=== PATIENT | male | born 1950 | race Caucasian/White ===

== ENCOUNTER 2019-01-22 21:08 | Inpatient (IN) | payer MEDICARE ==
[~2019-01-22] VITALS: Ht 170.2 cm; Wt 88.2 kg
--- NOTE | ~2019-01-22 | OP ---
PATIENT NAME: ROSIBEL JONES MEDICAL RECORD: [id number] :50 [facility] ADMISSION DATE:01/25/19 SURGEON: RAO MATUTE MD DATE OF OPERATION: 01/26/2019 SURGEON: Rao Matute MD ELECTRON BEAM WELDING MACHINE OPERATOR: Harmeet Santana. OPERATION PERFORMED: Right carotid endarterectomy. PREOPERATIVE DIAGNOSES: Right carotid stenosis, coronary artery disease. POSTOPERATIVE DIAGNOSES: Right carotid stenosis, coronary artery disease. ANESTHESIA: General endotracheal anesthesia. ESTIMATED BLOOD LOSS: Minimal. COMPLICATIONS: None. SPECIMENS: Plaque. CONDITION: Stable. DISPOSITION: CV ICU. OPERATIVE FINDINGS: 1. Discrete calcified plaque feathered well distally with primary arterial closure. 2. Neurologically intact to CV ICU. INDICATION: Coronary artery disease and severe carotid stenosis. DESCRIPTION OF PROCEDURE: The patient was brought to the operating suite. General anesthesia was obtained. The patient was prepped and draped. An oblique incision was made in the neck. Subcutaneous tissue divided with electrocautery as well as the muscle layer. The common carotid was dissected out. Facial venous branches were divided between ligatures. The external carotid and thyroid branch were dissected out and encircled with a vessel loop. The internal carotid was dissected out behind the hypoglossal nerve, which was spared from injury and into a relatively normal region of internal carotid and a good size artery that was moderately tortuous. Heparin was given and after the heparin circulated, back bleeding was controlled with a bulldog clamp. Backbleeding on the external carotid and thyroid branch controlled with vessel loops. Inflow controlled with a vascular clamp. EEG and cerebral oximetry were monitored for 2 minutes prior to endarterectomy. The incision was made in the common carotid artery, taken out through the region of dense calcification into a relatively normal region of the internal carotid. The plaque was divided and the common carotid. Eversion endarterectomy of the external carotid was performed and the plaque feathered well distally. Thorough irrigation was undertaken. All bits of loose debris were removed. The arteriotomy was closed primarily with a double running 6-0 Prolene and prior to completing the anastomosis, backbleeding was off all 3 major vessels. Anastomosis was completed with flow restored first to the external carotid and then to the OPERATIVE REPORT [id number] ROSIBEL JONES internal carotid. Interrupted patch sutures were used for hemostasis. Thorough irrigation was undertaken. Protamine was given. A drain was placed through a separate stab wound. Surgicel was placed over the wound after antibiotic irrigation. The wound was closed in 3 layers including Dermabond on the skin. Anesthesia was reversed. The patient neurologically intact to recovery room. TRANSINT:[id number] Voice Confirmation ID: [id number] DOCUMENT ID: [id number] RAO MATUTE MD CC: RANI DUGAN M.D. [id number] DICTATION DATE: 01/26/191806 EDGE STAINER: 01/27/19 0021 ADM IN [place] [id number] [place] [address]
--- NOTE | ~2019-01-22 | HEMODYNAMI ---
PATIENT:ROSIBEL JONES MEDICAL RECORD: [id number] : 50 [facility] [id number] ADMISSION DATE: 01/22/19 Generatedon:01/23/201915:11 Patient name: ROSIBEL JONES Patient #: [id number] SSN: : 1950 Date of study: 01/23/2019 Page: Of Hemodynamic Procedure Report Patient Data Patient Demographics Procedure consent was obtained First Name: ROSIBEL Gender: Male Last Name: ROBERT : 1950 Patient #: [id number] Age: 68 year(s) Race: Unknown Additional ID: [id number] Contact details [address]: [address] [place] [address] State: [place] City: [place] Zip code: [address] Past Medical History Allergies: No known allergies Admission Admission Data Admission Date: 01/22/2019 Admission Time: 23:03 Admit Source: Other Room #: D.2125 Weight (lbs.): 209 Weight (kg.): 94.8 Lab Results Lab Result Date: 01/23/2019 Lab Result Time: 5:09 Biochemistry Name Units Result Min Max BUN mg/dl 14 --(--*-)-- 7 18 Creatinine mg/dl 0.8 --(-*--)-- 0.6 1.3 CBC Name Units Result Min Max Hematocrit % 41.2 -*(----)-- 42 54 Hemoglobin g/dl 14.9 --(-*--)-- 13.5 17.5 Procedure Procedure Types Cath Procedure Diagnostic Procedure LHC LHC w/Coronaries Procedure Description Procedure Date Procedure Date: 01/23/2019 Procedure Start Time: 14:50 Procedure End Time: 15:08 Procedure Staff Name Function Kiran Vance MD Performing Physician Joshua Torres RT Monitor Courtney Louie RT Scrub Sheldon Han RN Nurse Itzel Sauceda RT Monitor Procedure Data Cath Procedure Fluoroscopy Diagnostic fluoroscopy Total fluoroscopy Time: 2.3 time: 2.3 min min Diagnostic fluoroscopy Total fluoroscopy dose: 760 dose: 760 mGy mGy Contrast Material Contrast Material Type Amount (ml) Isovue 300 61 Entry Location Entry Primary Successful Side Size Upsize Upsize Entry Closure Clark ccessful Closure Location (Fr) 1 (Fr) 2 (Fr) Remarks Device Remarks Radial Right 6 Fr Mechanical artery Short Compression Estimated blood loss: 5 ml Diagnostic catheters Device Type Used For End Catheter Placement DIAGNOSTIC Bj 110cm Procedure 5Fr catheter ([id number]) DIAGNOSTIC Pigtail 5Fr Multi-vessel catheter ([id number]) Angiography Procedure Complications No complications Procedure Medications Medication Administration Route Dosage 0.9% NaCl I.V. 100 ml/hr Oxygen etCO2 Nasal cannula 2 l/min Heparin Flush Bag added to field 2 bags (1000units/500ml NS) Lidocaine 2% added to field 20 Radial Cocktail added to field 1 syringe (Verapomil 2mg/Nitro 400mcg/Heparin 1500units) Versed I.V. 2 mg Fentanyl I.V. 100 mcg Hemodynamics Rest HGB: 14.9 (g/dl) Heart Rate: 76 (bpm) Pressure Samples Time Site Value (mmHg) Purpose Heart Use Rate(bpm) 14:54 LV 118/-6,4 Snapshot 83 Gradients Valve Time Site Site Mean SEP/DFP Peak To Heart Use 1 2 (mmHg) (sec/min) Peak Rate (mmHg) (bpm) Aortic 14:54 LV AO 42 Snapshots Pre Cath Intra NCS Post Cath Vital Signs Time Heart Resp SPO2 etCO2 NIBP (mmHg) Rhythm Pain Sedation Rate (ipm) (%) (mmHg) Status Level (bpm) 14:29:08 76 14 97 34.9 162/73(122) NSR 0 (11) 10(A) , No pain 14:33:31 74 13 97 29.6 159/73(118) NSR 0 (11) 10(A) , No pain 14:37:53 75 15 96 38.7 157/75(113) NSR 0 (11) 10(A) , No pain 14:42:15 76 13 97 31.9 160/73(102) NSR 0 (11) 10(A) , No pain 14:46:37 77 13 96 34.9 156/73(112) NSR 0 (11) 10(A) , No pain 14:50:55 82 16 97 35.7 159/79(104) NSR 0 (11) 10(A) , No pain 14:55:15 79 13 98 34.2 129/63(92) NSR 0 (11) 9(A) , No pain 14:59:27 78 11 96 34.2 140/68(96) NSR 0 (11) 9(A) , No pain 15:03:39 78 13 98 21.2 140/68(93) NSR 0 (11) 10(A) , No pain 15:07:53 78 16 96 37.2 142/70(113) NSR 0 (11) 10(A) , No pain Medications Time Medication Route Dose Verified Delivered Reason Notes E ffectiveness by by 14:27:44 0.9% NaCl I.V. 100 Sheldon Sheldon Per ml/hr Guille Han physician RN RN 14:27:54 Oxygen etCO2 2 l/min Sheldon Sheldon for low 02 Nasal Lorigan Lorigan sats cannula RN RN 14:28:08 Heparin Flush added 2 bags Sheldon Sheldon used for Bag to Lorigan Lorigan procedure (1000units/500ml field RN RN NS) 14:28:18 Lidocaine 2% added 20ml Sheldon Sheldon for local to vial Lorigan Lorigan anesthetic field RN RN 14:28:29 Radial Cocktail added 1 Sheldon Sheldon used for (Verapomil to syringe Lorigan Lorigan procedure 2mg/Nitro field RN RN 400mcg/Heparin 1500units) 14:50:46 Versed I.V. 2 mg Kiran Sheldon for Rajiv Han sedation RN 14:50:52 Fentanyl I.V. 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 14:01:57 Lab Result : Hemoglobin 14.9 g/dl 14:01:57 Lab Result : Creatinine 0.8 mg/dl 14::57 Lab Result : BUN 14 mg/dl 14::57 Lab Result : Hematocrit 41.2 % 14:02:02 Patient Weight : 209 lbs 14:02:32 H&P Date Dictated: 01/23/2019 Within 30 days and on chart.. 14:07:12 Sheldon Han RN sent for patient. Start room use. 14:16:07 Patient received from Med II to CCL 2 Alert and oriented. Tansferred to table in Supine position. 14:16:08 Warm blankets applied, and ran hugger turned on for patient comfort. 14:16:09 Correct patient and procedure confirmed by team. 14:16:10 ECG and BP/O2 sat monitors applied to patient. 14:27:44 0.9% NaCl 100 ml/hr I.V. was administered by Sheldon Han RN; Per physician; 14:27:54 Oxygen 2 l/min etCO2 Nasal cannula was administered by Sheldon Han RN; for low 02 sats; ::57 Vital chart was started 14:28:08 Heparin Flush Bag (1000units/500ml NS) 2 bags added to field was administered by Sheldon Han RN; used for procedure; 14:28:18 Lidocaine 2% 20ml vial added to field was administered by Sheldon Han RN; for local anesthetic; 14:28:29 Radial Cocktail (Verapomil 2mg/Nitro 400mcg/Heparin 1500units) 1 syringe added to field was administered by Sheldon Han RN; used for procedure; 14:33:01 Pre-procedure instructions explained to patient. 14:33:01 Pre-op teaching completed and patient verbalized understanding. 14:33:03 Family unavailable. 14:33:04 Patient NPO since Breakfast. 14:33:09 Patient allergic to No known allergies 14:33:10 Is the patient allergic to Iodine/contrast media? No. 14:33:12 Is patient on blood thinner?No 14:33:13 Patient diabetic? Yes. 14:33:14 If diabetic: On Metformin? No 14:33:16 Previous problem with sedation/anesthesia? No ? 14:33:17 Snore? Yes 14:33:19 Sleep apnea? No 14:33:19 Deviated septum? No 14:33:20 Opens mouth fully? Yes 14:33:21 Sticks out tongue? Yes 14:33:24 Airway obstruction? No ? 14:33:27 Dentures? No ? 14:33:31 Pre procedure: right posterior tibial pulse 1+ Palpable, but thready & weak; easily obliterated 14:33:33 Modified Checo's test Ulnar < 7 seconds 14:33:35 Patient pain scale 0/10 ?. 14:33:41 IV patent on arrival in right forearm with 0.9% NaCl at [facility]. 14:33:43 Lab results completed and on chart. 14:33:50 Right Radial & Right Groin area was prepped with chlora-prep and draped in sterile fashion 14:33:50 Alarms reviewed by R. N. 14:33:51 Sharps counted by scrub and verified by R.N. 14:33:56 Use device set Radial Dx or PCI 14:33:57 ACIST Syringe (38767) opened to sterile field. 14:33:57 Medline Cath Pack ([id number]) opened to sterile field. 14:33:58 Bag Decanter (2002S) opened to sterile field. 14:33:59 ACIST Hand Control (95087) opened to sterile field. 14:33:59 ACIST Manifold (35009) opened to sterile field. 14:34:00 Tegaderm 4 x 4 (1626W) opened to sterile field. 14:34:00 MBrace Wrist Support ([id number]) opened to sterile field. 14:34:02 SHEATH 6FR Slender (87-1060) opened to sterile field. 14:34:03 DIAGNOSTIC WIRE .035 260cm J wire (430988) opened to sterile field. 14:34:04 NEEDLE Cook 21G 4cm Radial (J13393) opened to sterile field. 14:34:12 Baseline sample Acquired. 14:34:17 Rhythm: sinus rhythm 14:34:23 Full Disclosure recording started 14:35:29 Zero performed for pressure channel P1 14:48:28 Physician arrived 14:48:29 --------ALL STOP TIME OUT------ 14:48:29 Final Timeout: patient, procedure, and site verified with staff and physician. All members of the team are in agreement. 14:48:34 Right Radial & Right Groin site verified by team. 14:48:41 Maximum allowable contrast dose 118.5ml. Physician notified. 14:48:45 Fire Safety Assessment: A--An alcohol-based skin anteseptic being used preoperatively., C--Open oxygen or nitrous oxide is being used., D--An ESU, laser, or fiber-optic light is being used. 14:48:47 Physical assessment completed. ASA score P 2 - A patient with mild systemic disease as per Kiran Vance MD. 14:48:51 Sedation plan: IV Moderate Sedation Medication:Versed, Fentanyl 14:50:46 Versed 2 mg I.V. was administered by Sheldon Han RN; for sedation; 14:50:49 Procedure started. 14:50:52 Fentanyl 100 mcg I.V. was administered by Sheldon Han RN; for sedation; 14:50:52 Local anesthetic to right radial artery with Lidocaine 2% by Kiran Vance MD.INITIAL ACCESS ONLY 14:52:25 A 6 Fr Short sheath was inserted into the Right Radial artery 14:52:30 A DIAGNOSTIC Bj 110cm 5Fr catheter (058094) was advanced over the wire and used for Procedure. 14:54:15 LV gram done using WHITE 14:54:18 Injector settings: Ml/sec: 5, Volume: 15, 14:54:24 EF : 60 % 14:54:42 LV hemodynamics recorded. 14:54:45 RCA angiography performed. 14:56:54 LCA angiography performed. 14:58:45 Catheter removed. 14:59:40 A DIAGNOSTIC Pigtail 5Fr catheter ([id number]) was advanced over the wire and used for Multi-vessel Angiography. 15:00:32 Aortic Root visualized 15:01:30 Catheter removed. 15:05:16 TR BAND Standard ([id number]) opened to sterile field. 15:06:31 Sheath removed intact; hemostasis achieved with Mechanical Compression to the Right Radial artery. 15:06:33 Procedure ended.(Physican Out) 15:06:50 Fluoroscopy time 02.30 minutes. 15:06:55 Fluoroscopy dose: 760 mGy 15:06:55 Flurop Dose total: 760 15:07:03 Contrast amount:Isovue 300 61ml. 15:07:04 Sharps counted by scrub and verified by R.N. 15:07:07 TR band inflated with 12cc of air. 15:07:08 Insertion/operative site no bleeding no hematoma. 15:07:22 Post right radial artery:stable 15:07:24 Post Procedure Pulses reassessed and unchanged 15:07:26 Post procedure rhythm: unchanged. 15:07:28 Estimated blood loss: 5 ml 15:07:32 Post procedure instruction explained to patient.Patient verbalizes understanding. 15:07:32 Patient needs reinforcement of post procedure teaching. 15:08:21 Procedure and supply charges have been captured, reviewed, submitted and are correct. 15:08:34 Procedure Complication : No complications 15:08:36 Vital chart was stopped 15:08:37 See physician's report for complete and final results. 15:08:42 Report given to Med II. 15:08:45 Patient transfered to Med II with Stretcher. 15:08:48 Procedure ended. 15:08:48 Full Disclosure recording stopped 15:09:10 End room use (Document Last) Device Usage Item Name Manufacture Quantity Catalog Hospital Part Current Minimal Lot# / Number Charge Number Stock Stock Serial# Code ACIST Acist 1 99582 963636 629826 629801 20 Syringe Medical (24849) Systems Inc Medline Medline 1 [id number] 971560 67142 631577 5 Cath Pack ([id number]) Bag Microtek 1 2001S 232017 02276 611356 5 Decanter Medical Inc. () ACIST Hand Acist 1 07278 840882 129777 602936 5 Control Medical (70920) Systems Inc ACIST Acist 1 65074 402654 919451 959975 5 Manifold Medical (31994) Systems Inc Tegaderm 4 3M 1 1626W 435235 133079 455343 5 x 4 (1626W) MBrace Advanced 1 140-0250-00 071684 95761 144214 5 Wrist Vascular Support Dynamics ([id number]) SHEATH 6FR Terumo 1 [id number] 743247 070114 755159 5 Slender (80-1060) DIAGNOSTIC [facility] Ramone 1 938250 011997 968198 531863 30 WIRE .035 260cm J wire (823683) NEEDLE [employer] Medical 1 V10456 501339 370001 649294 5 21G 4cm Radial (B21627) DIAGNOSTIC Terumo 1 47-1672 305308 283580 491374 5 Bj 110cm 5Fr catheter (294918) DIAGNOSTIC Cardinal 1 022162V 974349 906481 335871 5 Pigtail 5Fr Health catheter (108426Z) TR BAND Terumo 1 [id number] 899728 670585 287337 40 Standard ([id number]) Signature Audit Moran Stage Time Signature Unsigned Intra-Procedure 01/23/2019 Itzel Sauceda 3:11:18 PM RT(R) Signatures Monitor : Joshua Torres RT Signature : Date : Time : Monitor : Itzel Sauceda RT Signature : Date : Time : [place] [id number] [facility] [address]
[2019-01-22] MEDS ORDERED: LANTUS INSULIN10 ML SC (21:16)
[2019-01-22] MEDS ORDERED: BAYER CHEWABLE81 MG PO (21:16)
[2019-01-22] MEDS ORDERED: LOVASTATIN10 MG PO (21:17)
[2019-01-22] MEDS ORDERED: TOPROL XL100 MG PO (21:17)
[2019-01-22] MEDS ORDERED: NAPROXEN375 M1 PO (21:17)
[2019-01-22] MEDS ORDERED: NITROSTAT0.3 MG SL (21:19)
[2019-01-22] MEDS ORDERED: TRIBENZOR 40-11 EAC1 PO (21:20)
[2019-01-22] MEDS ORDERED: NOVOLOG100 UNIT/1 SC (21:20)
[2019-01-22 22:21] LABS: CKMB 1.6 U/L (0.0-3.6); CREATINE KINASE 159 UL (21-232); PRO BNP 47 pg/mL (0-125)
[2019-01-22 22:22] LABS: TROPONIN-I < 0.017 ng/mL (0.000-0.060)
[2019-01-22 22:41] VITALS: BP 188/78
--- NOTE | 2019-01-22 23:50 | NUR ---
RECEIVED REPORT, FROM [facility] IN ER, PT ARRIVED VIA WHEELCHAIR, PT IS A&O,IV-RFA-NS @20, MEDS REVIEWED, HISTORY COMPLETE, AT BEDSIDE, WILL KEEP PT NPO, BED IS LOW, SRX1, CALL LIGHT IN REACH, WILL CONTINUE PLAN OF CARE
[2019-01-23 04:00] VITALS: BP 142/55
[2019-01-23 05:42] LABS: BASOPHILS 0.3 % (0-2); EOSINOPHILS 1.9 % (0-7); HEMATOCRIT 41.2 % (42.0-54.0); HEMOGLOBIN 14.9 g/dL (13.5-17.5); IMMATURE GRANULOCYTES 0.1 % (0-5); LYMPHOCYTES 17.2 % (15-50); MCH 32.6 pg (26.0-34.0); MCHC 36.2 g/dL (31.0-37.0); MCV 90.2 fL (80.0-100.0); MEAN PLATELET VOLUME 10.1 fL (7.4-10.4); MONOCYTES 12.1 % (2-11); NEUTROPHILS 68.4 % (40-80); PLATELET COUNT 160 10x3/uL (130-400); RBC 4.57 10x6/uL (4.20-6.10); RDW 13.4 % (11.5-14.5); WBC 6.8 10x3/uL (4.8-10.8)
[2019-01-23 06:01] LABS: CALC OSMOLALITY 287 mosm/kg (275-300); CALCIUM 8.5 mg/dL (8.5-10.1); CARBON DIOXIDE 27.4 mmol/L (21.0-32.0); CHLORIDE - SERUM 105 mmol/L (98-107); CREATININE - SERUM 0.8 mg/dL (0.6-1.3); GLUCOSE 214 mg/dL (74-106); POTASSIUM - SERUM 3.5 mmol/L (3.5-5.1); SODIUM 141 mmol/L (136-145); TROPONIN-I 0.017 ng/mL (0.000-0.060); UREA NITROGEN 14 mg/dL (7-18); eGFR NON AFRICAN AMERICAN > 90 mL/min (90-120)
[2019-01-23 09:57] VITALS: BP 146/62
[2019-01-23] MEDS ORDERED: LOVASTATIN20 MG PO (10:17)
--- NOTE | 2019-01-23 15:30 | NUR ---
PT LAYING IN BED, RESPIRATIONS EVEN AND UNLABORED. CALL LIGHT IN REACH
[2019-01-23 18:48] VITALS: BP 140/63
--- NOTE | 2019-01-23 19:15 | NUR ---
INTRODUCED SELF TO PATIENT, RESP EVEN AND UNLABORED. PATIENT UP IN ROOM, EATING SANDWICH ON BEDSIDE TRAY. BED IN LOWEST POSITION, CALL LIGHT IN REACH.
[2019-01-23 20:00] VITALS: BP 144/75
--- NOTE | 2019-01-24 02:44 | NUR ---
PATIENT RESTING QUIETLY, EYES CLOSED. RESP EVEN AND UNLABORED. BED IN LOWEST POSITION, CALL LIGHT IN REACH.
[2019-01-24 04:00] VITALS: BP 148/53
[2019-01-24 09:34] VITALS: BP 161/77
[2019-01-24 12:13] VITALS: BP 142/67
--- NOTE | 2019-01-24 13:15 | NUR ---
I have reviewed this patient and I concur with the Shift Assessment completed by the Licensed Practical Nurse today this shift.
--- NOTE | 2019-01-24 15:05 | MORECARE ---
CASE MANAGEMENT DISCHARGE SUMMARY PATIENT: ROSIBEL JONES UNIT: [id number] ADM DATE: 01/22/19 AGE: 68 : 50 SEX: M ROOM/BED: D.2125 AUTHOR: DELMER GALVAN PHYSICIAN: REFERRING PHYSICIAN: RANI DUGAN M.D. DATE OF SERVICE: 01/24/19 Discharge Plan Patient Name: ROSIBEL JONES Facility: [facility]:[place] : 1950 Planned Disposition: Anticipated Discharge Date: Discharge Date: Expected LOS: Initial Reviewer: [email or web address] Initial Review Date: 01/23/2019 Generated: 01/24/19 4:05 pm Coverage Notice Reviewer: [email or web address] - Mary Herrmann Notice Issued Date-Time: 01/24/2019 9:43 Notice Type: Medicare Outpatient Observation Notice Notice Delivered To: Patient Relationship to Patient: Self In Store Banker Name: Delivery Method: HAND - Hand Delivered Fiona Days: Prior Verbal Notification: Recipient Understood Notice: Yes Recipient Signature: Yes Med Rec Note Co-signed by Attending: Coverage Notice Comment: DISCUSSED MARTINEZ WITH PATIENT, HIS MAURICE, AND FRIEND OSITO, AFTER VERBAL PERMISSION OBTAINED. Patient Name: ROSIBEL JONES Page [phone] at 1505 All edits/amendments must be made on the electronic document DICTATION DATE: 01/24/19 1505 DEICER REPAIRER: JOSE 01/24/19 1505 RPT#: [id number] ID DATE: STATUS: ADM IN [facility] [address] [place] [address] END OF REPORT
[2019-01-24 17:06] VITALS: BP 154/60
[2019-01-24 20:00] VITALS: BP 166/72
--- NOTE | 2019-01-24 21:17 | NUR ---
BS 213, COVERED PER S/S. HS SNACK PROVIDED. PT DENIES PAIN OR NEEDS, BED LOW, CL IN REACH.
[2019-01-25] VITALS: BP 155/72
[2019-01-25 04:00] VITALS: BP 148/70
[2019-01-25 08:32] LABS: ALBUMIN 3.6 g/dL (3.4-5.0); ALKALINE PHOSPHATASE 64 U/L (46-116); ALT (SGPT) 82 U/L (10-68); BILIRUBIN - TOTAL 1.04 mg/dL (0.2-1.3); CALC OSMOLALITY 286 mosm/kg (275-300); CALCIUM 8.5 mg/dL (8.5-10.1); CARBON DIOXIDE 26.7 mmol/L (21.0-32.0); CHLORIDE - SERUM 105 mmol/L (98-107); CREATININE - SERUM 0.9 mg/dL (0.6-1.3); GLUCOSE 174 mg/dL (74-106); POTASSIUM - SERUM 3.7 mmol/L (3.5-5.1); PROTEIN - SERUM 7.3 g/dL (6.4-8.2); SODIUM 142 mmol/L (136-145); UREA NITROGEN 12 mg/dL (7-18); eGFR NON AFRICAN AMERICAN 89 mL/min (90-120)
[2019-01-25 08:40] LABS: BASOPHILS 0.3 % (0-2); EOSINOPHILS 2.2 % (0-7); HEMOGLOBIN 15.5 g/dL (13.5-17.5); IMMATURE GRANULOCYTES 0.2 % (0-5); LYMPHOCYTES 21.9 % (15-50); MCH 31.6 pg (26.0-34.0); MCHC 35.2 g/dL (31.0-37.0); MCV 89.8 fL (80.0-100.0); MEAN PLATELET VOLUME 10.1 fL (7.4-10.4); MONOCYTES 13.3 % (2-11); NEUTROPHILS 62.1 % (40-80); PLATELET COUNT 155 10x3/uL (130-400); RDW 13.1 % (11.5-14.5); WBC 5.8 10x3/uL (4.8-10.8)
--- NOTE | 2019-01-25 10:22 | NUR ---
PT TAKING SHOWER AND COMPLETE BED CHANGE DONE.
[2019-01-25 11:53] VITALS: BP 132/72
--- NOTE | 2019-01-25 14:49 | NUR ---
I have reviewed this patient and I concur with the Shift Assessment completed by the Licensed Practical Nurse today this shift.
[2019-01-25 16:01] VITALS: BP 126/76
--- NOTE | 2019-01-25 16:33 | NUR ---
PT NERVOUS ABOUT SURGERY TOMORROW AND WANTING SOMETHINGT O HELP HIM SLEEP TONIGHT. SPOKE WITH DR. RAMOS AND HE STATES TO GIVE PT 1MG OF ATIVAN TONIGHT.
[2019-01-25 17:12] LABS: APPEARANCE CLEAR (CLEAR); BILIRUBIN NEGATIVE (NEGATIVE); COLOR YELLOW (YELLOW); GLUCOSE 1000 mg/dL (NEGATIVE); KETONE NEGATIVE (NEGATIVE); NITRITE NEGATIVE (NEGATIVE); PROTEIN NEGATIVE (NEGATIVE); SPECIFIC GRAVITY 1.015 (1.005-1.020); UROBILINOGEN NORMAL (NORMAL)
[2019-01-25 17:18] LABS: HEMATOCRIT 43.1 % (42.0-54.0); HEMOGLOBIN 15.1 g/dL (13.5-17.5); MCH 31.1 pg (26.0-34.0); MCV 88.7 fL (80.0-100.0); MEAN PLATELET VOLUME 10.4 fL (7.4-10.4); RBC 4.86 10x6/uL (4.20-6.10); WBC 5.4 10x3/uL (4.8-10.8)
[2019-01-25 17:26] LABS: APTT 23.6 SECONDS (22.8-39.4); INR 1.01 (0.85-1.17); PROTIME 12.8 SECONDS (11.6-15.0)
[2019-01-25 17:37] LABS: ALBUMIN 3.7 g/dL (3.4-5.0); ALKALINE PHOSPHATASE 75 U/L (46-116); ALT (SGPT) 81 U/L (10-68); CALC OSMOLALITY 283 mosm/kg (275-300); CALCIUM 8.8 mg/dL (8.5-10.1); CARBON DIOXIDE 23.9 mmol/L (21.0-32.0); CHLORIDE - SERUM 103 mmol/L (98-107); CREATININE - SERUM 0.8 mg/dL (0.6-1.3); GLUCOSE 199 mg/dL (74-106); POTASSIUM - SERUM 3.9 mmol/L (3.5-5.1); PROTEIN - SERUM 7.1 g/dL (6.4-8.2); SODIUM 139 mmol/L (136-145); UREA NITROGEN 13 mg/dL (7-18); eGFR NON AFRICAN AMERICAN > 90 mL/min (90-120)
--- NOTE | 2019-01-25 19:30 | NUR ---
SNACK PROVIDED AT PT REQUEST.
[2019-01-25 20:00] VITALS: BP 181/80
--- NOTE | 2019-01-25 22:05 | NUR ---
BS 226, COVERED PER S/S. RICKSHAW DRIVER AT BED SIDE, PTS NECK CLIPPED AND WASHED WITH HIBICLENSE.
[2019-01-26] VITALS (26 sets, daily range): BP systolic 103–160; BP diastolic 40–78; Ht 170.2 cm; Wt 88.2 kg
--- NOTE | 2019-01-26 03:52 | NUR ---
RESTING WITH EYES CLOSED, RESPERATIONS EVEN, NO S/S DISTRESS NOTED.
--- NOTE | 2019-01-26 05:57 | NUR ---
HAIR WASHED AND TOWEL DRIED.
[2019-01-26 08:24] LABS: BASOPHILS 0.3 % (0-2); EOSINOPHILS 2.4 % (0-7); HEMATOCRIT 44.3 % (42.0-54.0); HEMOGLOBIN 15.9 g/dL (13.5-17.5); IMMATURE GRANULOCYTES 0.2 % (0-5); LYMPHOCYTES 21.2 % (15-50); MCH 31.9 pg (26.0-34.0); MCHC 35.9 g/dL (31.0-37.0); MCV 88.8 fL (80.0-100.0); MEAN PLATELET VOLUME 10.2 fL (7.4-10.4); MONOCYTES 10.7 % (2-11); NEUTROPHILS 65.2 % (40-80); PLATELET COUNT 166 10x3/uL (130-400); RBC 4.99 10x6/uL (4.20-6.10); WBC 6.3 10x3/uL (4.8-10.8)
[2019-01-26 08:32] LABS: CALC OSMOLALITY 287 mosm/kg (275-300); CALCIUM 8.5 mg/dL (8.5-10.1); CARBON DIOXIDE 26.8 mmol/L (21.0-32.0); CHLORIDE - SERUM 106 mmol/L (98-107); CREATININE - SERUM 0.7 mg/dL (0.6-1.3); POTASSIUM - SERUM 3.7 mmol/L (3.5-5.1); SODIUM 143 mmol/L (136-145); UREA NITROGEN 12 mg/dL (7-18); eGFR NON AFRICAN AMERICAN > 90 mL/min (90-120)
[2019-01-26 08:33] LABS: GLUCOSE 149 mg/dL (74-106)
[2019-01-26 08:38] LABS: INR 1.06 (0.85-1.17); PROTIME 13.3 SECONDS (11.6-15.0)
--- NOTE | 2019-01-26 14:02 | NUR ---
SURGERY CALLED TO PRE-OP PT. PRE-OP MEDICATIONS GIVEN AND PT COMPLETELY READY TO GO. RETURNED TO [facility]. NO FURTHER NEEDS. PT LEAVING ROOM NOW WITH TRANSPORTER AND AT BEDSIDE COLLECTED ALL HER BELONGINGS. NO FURTHER NEEDS.
--- NOTE | 2019-01-26 18:15 | NUR ---
1801 PT ARRIVED TO ROOM ALERT AND ORIENTED PLACED ON O2 5L HIGH FLOW CANNULA, R CEA INCISION DRESSING CDI, RAVI COMPRESSED WITH BLOODY DRAINAGE AND ICE APPLIED, L SUBCLAVIAN CVL DRESSING CDI WITH PLASMALYYE 30ML/HR, NITRO 30ML/HR AND INITATED CLEVIPREX, R RADIAL ART LINE WITH WRIST PROTECTOR IN PLACE, ZEROED WITH GOOD WAVEFORM, PULSES PALPABLE, NEURO WNL, NO DEFICITS NTOED, CRITICORE DRAINING YELLOW URINE, WILL CONTINUE TO MONITOR
--- NOTE | 2019-01-26 19:00 | NUR ---
BEDSIDE SHIFT REPORT RECEIVED. VSS. NEURO INTACT. RESPIRATIONS EVEN AND UNLABORED. DENIES ANY NEEDS AT THIS TIME. WILL CONTINUE TO MONITOR.
--- NOTE | 2019-01-26 21:00 | NUR ---
VSS AT THIS TIME. REPIRATIONS EVEN AND UNLABORED. BED BATH GIVEN AND LINENS CHANGED. DENIES ANY NEEDS AT THIS TIME. WILL CONTINUE TO MONITOR.
--- NOTE | 2019-01-26 23:00 | NUR ---
PAIN MEDICINE GIVEN AT THIS TIME. SEE REASSESSMENT FLOWSHEET.
[2019-01-27] VITALS (47 sets, daily range): BP systolic 118–175; BP diastolic 43–91
--- NOTE | 2019-01-27 01:00 | NUR ---
NAUSEA MEDICINE GIVEN. WILL CONTINUE TO MONITOR.
--- NOTE | 2019-01-27 03:00 | NUR ---
0100 VSS. PATIENT TOLERATING ICE CHIPS AT THIS TIME. 0300 SEE ASSESSMENT FLOWSHEET.
--- NOTE | 2019-01-27 05:00 | NUR ---
MEDS GIVEN. INTAKE AND OUTPUT COLLECTED AT THIS TIME. VSS. NO SIGNS OR SYMPTOMS OF DISTRESS AT THIS TIME. DENIES ANY NEEDS. WILL CONTINUE TO MONITOR.
--- NOTE | 2019-01-27 07:00 | NUR ---
REC'D CARE OF PT. A&O X3. NO COMPLAINTS. HAD SOME NAUSEA EARLIER. REQUESTED JELLO INSTEAD OF BREAKFAST TRAY.
--- NOTE | 2019-01-27 07:30 | NUR ---
CLEVEPREX AND NITRO BEING TITRATED TO EFFECT.
--- NOTE | 2019-01-27 09:28 | NUR ---
PRESSORS BEING TITRATED TO EFFECT.
--- NOTE | 2019-01-27 09:30 | NUR ---
MANNY GALICIA RN DC'D RIGHT UPPER CHEST RAVI DRAIN.
--- NOTE | 2019-01-27 10:30 | NUR ---
AMBULATED WITH JULIUS POLLARD
--- NOTE | 2019-01-27 10:49 | NUR ---
AMOS DC'D FROM BLADDER AND RIGHT RADIAL JARED DC'D WITH TIP INTACT.
--- NOTE | 2019-01-27 10:50 | NUR ---
OOB TO CHAIR.
--- NOTE | 2019-01-27 11:05 | NUR ---
REASSESSMENT COMPLETED PER FLOW SHEET. NO ACUTE CHANGES.
--- NOTE | 2019-01-27 11:15 | NUR ---
CLEVEPREX AND NITRO BEING WEANED OFF.
--- NOTE | 2019-01-27 11:40 | NUR ---
CLEVEPREX AND NITRO WEANED OFF.
--- NOTE | 2019-01-27 12:03 | NUR ---
PLACED ON RA. SATTING 94%.
--- NOTE | 2019-01-27 13:44 | NUR ---
NITRO AND CLEVEPREX REMAIN OFF.
--- NOTE | 2019-01-27 14:53 | NUR ---
REASSESSMENT COMPLETED PER FLOW SHEET. NO ACUTE CHANGES.
--- NOTE | 2019-01-27 15:33 | NUR ---
DENIES NEEDS. REMAINS UP IN CHAIR. CLEVEPREX AND NITRO REMAIN OFF.
--- NOTE | 2019-01-27 17:05 | NUR ---
REMAINS OOB IN CHAIR.
--- NOTE | 2019-01-27 17:35 | NUR ---
ZINACEF IS COMPLETED.
--- NOTE | 2019-01-27 17:52 | NUR ---
BACK TO BED WITHOUT DIFFICULTY.
--- NOTE | 2019-01-27 23:00 | NUR ---
1900 BEDSIDE SHIFT REPORT RECEIVED. VSS. NO S/S OF DISTRESS AT THIS TIME. NO NEEDS VERBALIZED. WILL CONTINUE TO MONITOR. 2100 MEDS GIVEN AT THIS TIME. SNACK OFFERED. VSS. 2300 PATIENT AMBULATED TO BATHROOM. VOIDED WITHOUT DIFFICULTY. NO OTHER NEEDS AT THIS TIME.
[2019-01-28] VITALS (18 sets, daily range): BP systolic 141–167; BP diastolic 44–69
--- NOTE | 2019-01-28 03:00 | NUR ---
[address] SAFETY MEASURES IN PLACE. DENIES ANY NEEDS AT THIS TIME. 0300 SEE ASSESSMENT FLOWSHEET.
--- NOTE | 2019-01-28 05:10 | NUR ---
0500 RIGHT NECK DRESSING CHANGED. DENIES NEEDS AT THIS TIME.
--- NOTE | 2019-01-28 07:00 | NUR ---
REC'D Care OF PT. A&O X3. DENIES NEEDS. SITTING UP IN CHAIR. PULLS 1250 ON IS.
--- NOTE | 2019-01-28 09:43 | NUR ---
UP TO BATHROOM AND BACK TO CHAIR. HOOKED BACK UP TO MONITORING DEVICES.
--- NOTE | 2019-01-28 10:54 | NUR ---
REASZSESSMENR COMPLETED PER FLOW SHEET. NO ACUTE CHANGES.
--- NOTE | 2019-01-28 12:46 | NUR ---
HYPERTENSIVE. PAIN PILL GIVEN. C/O INCISIONAL PAIN 01/28.
--- NOTE | 2019-01-28 14:35 | NUR ---
AMBULATED WITH JULIUS PT AND BACK TO ROOM. GETS SELF BACK IN CHAIR.
--- NOTE | 2019-01-28 15:07 | NUR ---
REASSESSMENT COMPLETED PER FLOW SHEET. NO ACUTE CHANGES.
--- NOTE | 2019-01-28 17:16 | NUR ---
DINNER TRAY SERVED
--- NOTE | 2019-01-28 19:21 | NUR ---
BEDSIDE SHIFT REPORT GIVEN BY DEPARTING LANE. ERIS. AAOX4. SOHAN. DENIES PAIN. SAFETY MEASURES IN PLACE. CBIR.
--- NOTE | 2019-01-28 19:38 | NUR ---
ASSESSMENT COMPLETE. SEE FLOWSHEET FOR DETAILS.
--- NOTE | 2019-01-28 20:35 | NUR ---
HS MEDS GIVEN. TOLERATED WELL. SNACKS PROVIDED.
--- NOTE | 2019-01-28 23:07 | NUR ---
REASSESSMENT COMPLETE. NO CHANGES NOTED. SLEEPING SHOWING NO SS OF DISTRESS. SAFETY MEASURES IN PLACE. CBIR.
[2019-01-29] VITALS (9 sets, daily range): BP systolic 137–154; BP diastolic 47–72
--- NOTE | 2019-01-29 03:48 | NUR ---
REASSESSMENT COMPLETE. NO CHANGES NOTED.
--- NOTE | 2019-01-29 05:05 | NUR ---
ASLEEP SHOWING NO SS OF DISTRESS.
--- NOTE | 2019-01-29 07:00 | NUR ---
REPORT RECEIVED FROM THE OFF GOING RN. SEE ASSESSMENT IN THE PTS FLOW SHEET. PT UP ADLIB WITH NO ISSUES. VSS. PT DENIES PAIN AT THIS TIME. NSR ON THE MONITOR. NEURO CHECKS WNL. RIGHT NECK INCISION NOTED WELL APPROXIMATED. NO DYSPAGIA NOTED. TRACHEA MIDLINE. LEFT SUBCLAVIAN CVL NOTED. DRESSING C/D/I. CALL LIGHT IN REACH. WILL CONT POC.
--- NOTE | 2019-01-29 08:30 | NUR ---
PT OOB IN HIS BEDSIDE CHAIR. PT MEAL TRAY PROVIDED. DENIES PAIN. CALL LIGHT IN REACH. WILL CONT POC.
[2019-01-29] MEDS ORDERED: ULTRAM50 MG PO (10:54)
--- NOTE | 2019-01-29 10:59 | NUR ---
DR LANDIN AT THE PTS BEDSIDE. OK TO DISCHARGE HOME. SEE ORDERS.
--- NOTE | 2019-01-29 11:49 | NUR ---
DELAY IN DISCHARGE DUE TO INSURANCE. FLAKO WITH CASEMANEGMENT ON THE PHONE WITH THE INSURANCE COMPAMY. LUNCH TRAY PROIVDED FOR THE PT.
--- NOTE | 2019-01-29 12:39 | NUR ---
CENTRAL LINE DC WITH THE CATHETER TIP INTACT. DRESSING APPLIED C/D/I. INSTRUCTED TO LYE FLAT FOR 30 MINS.
--- NOTE | 2019-01-29 13:15 | NUR ---
PT BELONINGS ACCOUNTED FOR. DC INSTRUCTIONS WENT OVER WITH THE PT. PT AND PTS DENIES QUSTIONS AT THIS TIME. PT LEFT WITH NO S/SX OF DISTRESS/DISCOMFORT NOTED. BREATHING NORMAL AND UNLABORED. PAPER WORK SIGNED BY THE PTS PER THE PTS REQUEST. LEFT VIA PERSONAL VEHICHAL DRIVEN BY THE .
--- NOTE | 2019-01-29 18:50 | MORECARE ---
CASE MANAGEMENT DISCHARGE SUMMARY PATIENT: ROSIBEL JONES UNIT: [id number] ADM DATE: 01/25/19 AGE: 68 : 50 SEX: M ROOM/BED: [facility] AUTHOR: DELMER GALVAN PHYSICIAN: REFERRING PHYSICIAN: RANI DUGAN M.D. DATE OF SERVICE: 01/29/19 Discharge Plan Patient Name: ROSIBEL JONES Facility: [facility]:[place] : 1950 Planned Disposition: Home Anticipated Discharge Date: Discharge Date: 01/29/2019 Expected LOS: Initial Reviewer: [email or web address] Initial Review Date: 01/29/2019 Generated: 01/29/19 7:50 pm Coverage Notice Reviewer: [email or web address] Zulema Herrmann Notice Issued Date-Time: 01/24/2019 9:43 Notice Type: Medicare Outpatient Observation Notice Notice Delivered To: Patient Relationship to Patient: Self Studio Camera Operator Name: Delivery Method: HAND - Hand Delivered Fiona Days: Prior Verbal Notification: Recipient Understood Notice: Yes Recipient Signature: Yes Med Rec Note Co-signed by Attending: Coverage Notice Comment: DISCUSSED MARTINEZ WITH PATIENT, HIS MAURICE, AND FRIEND OSITO, AFTER VERBAL PERMISSION OBTAINED. Last DP export: 01/24/19 1:05 pm Patient Name: ROSIBEL JONES Page 54012 at 1850 All edits/amendments must be made on the electronic document DICTATION DATE: 01/29/191848 HEAD START ASSISTANT TEACHER: JOSE 01/29/191848 RPT#: [id number] DC DATE:01/29/19 STATUS: DIS IN [facility] [address] [place] [address] END OF REPORT
--- NOTE | 2019-01-29 18:57 | MORECARE ---
CASE MANAGEMENT DISCHARGE SUMMARY PATIENT: ROSIBEL JONES UNIT: [id number] ADM DATE: 01/25/19 AGE: 68 : 50 SEX: M ROOM/BED: [facility] AUTHOR: COLE,DOC PHYSICIAN: REFERRING PHYSICIAN: RANI DUGAN M.D. DATE OF SERVICE: 01/29/19 Discharge Plan Patient Name: ROSIBEL JONES Facility: [facility]:[place] : 1950 Planned Disposition: Home Anticipated Discharge Date: Discharge Date: 01/29/2019 Expected LOS: Initial Reviewer: [email or web address] Initial Review Date: 01/29/2019 Generated: 01/29/19 7:56 pm Comments DCP- Discharge Planning Updated by [email or web address]: Melissa Jones on 01/29/19 5:[address] Patient Name: ROSIBEL JOENS Admission Status: ER Accout number: [id number] Admission Date: 01-25-2019 : 1950 Admission Diagnosis:CHEST PAIN, UNSPECIFIED Attending: RANI DUGAN Current LOS: 4 Anticipated DC Date: Planned Disposition: Home Primary Insurance: [employer] CHOICE PPO MCR ADVANT Discharge Planning Comments: CM met with patient and spouse at bedside. Patient states he lives at home with is spouse (MAURICE). He plans on returning to their home upon discharge. He states he feels safe at his home. He states he will have family drive him home upon discharge. He denies any discharge needs at this time. CM will continue to follow and assist as needed with discharge planning / needs. Senior Energy Market Coordinator: Melissa Jones Appended by Melissa Jones on 01/29/2019 18:54 CDT: D/C IMM EXPLAINED AND SERVED AT 01/29/19 @ 1220 DCPIA - Discharge Planning Initial Assessment Updated by [email or web address]: Melissa Jones on 01/29/19 6:51 pm * Is the patient Alert and Oriented? Yes * How many steps to enter\exit or inside your home? * PCP LEI ZAMBRANO * [facility]acy [facility] * Preadmission Environment Home with Family * ADLs Independent * Equipment None * List name and contact numbers for known caregivers / representatives who currently or will assist patient after discharge: MAURICE JONES - - [phone] * Verbal permission to speak to the caregivers and representatives has been obtained from the patient. Yes * Community resources currently utilized None * Additional services required to return to the preadmission environment? No * Can the patient safely return to the preadmission environment? Yes * Has this patient been hospitalized within the prior 30 days at any hospital? No Coverage Notice Reviewer: [email or web address] Zulema Herrmann Notice Issued Date-Time: 01/24/2019 9:43 Notice Type: Medicare Outpatient Observation Notice Notice Delivered To: Patient Relationship to Patient: Self Sales And Marketing Executive Name: Delivery Method: HAND - Hand Delivered Fiona Days: Prior Verbal Notification: Recipient Understood Notice: Yes Recipient Signature: Yes Med Rec Note Co-signed by Attending: Coverage Notice Comment: DISCUSSED MARTINEZ WITH PATIENT, HIS MAURICE, AND FRIEND OSITO, AFTER VERBAL PERMISSION OBTAINED. Last DP export: 01/29/19 5:50 p Patient Name: ROSIBEL JONES Page [phone] at 1857 All edits/amendments must be made on the electronic document DICTATION DATE: 01/29/191855 MANAGER OF CASE MANAGEMENT: JOSE 01/29/191855 RPT#: [id number] DC DATE:01/29/19 STATUS: DIS IN [facility] [address] [place] [address] END OF REPORT
== END 2019-01-29 14:46 | disposition home or self-care (01) | DRG 253 ==
LOC: D.ER 21:08 → OBSVTIME 23:03 → D.M2 23:03 → D.CVICU 01-25 15:28
PROVIDERS: Family Medicine; Thoracic Surgery (Cardiothoracic Vascular Surgery); ADMIT Internal Medicine Cardiovascular Disease; ATTEND Internal Medicine Cardiovascular Disease
PROC: B2111ZZ Fluoroscopy of Multiple Coronary Arteries using Low Osmolar Contrast (ICD-10-PCS; 2019-01-23)
PROC: B3101ZZ Fluoroscopy of Thoracic Aorta using Low Osmolar Contrast (ICD-10-PCS; 2019-01-23)
PROC: B2151ZZ Fluoroscopy of Left Heart using Low Osmolar Contrast (ICD-10-PCS; 2019-01-23)
PROC: 4A023N7 Measurement of Cardiac Sampling and Pressure, Left Heart, Percutaneous Approach (ICD-10-PCS; 2019-01-23)
PROC: 03CM0ZZ Extirpation of Matter from Right External Carotid Artery, Open Approach (ICD-10-PCS; 2019-01-26)
PROC: 03CH0ZZ Extirpation of Matter from Right Common Carotid Artery, Open Approach (ICD-10-PCS; principal; 2019-01-26 14:05)
DX: I25.110 Atherosclerotic heart disease of native coronary artery with unstable angina pectoris (principal); T82.855A Stenosis of coronary artery stent, initial encounter; I10 Essential (primary) hypertension; E11.9 Type 2 diabetes mellitus without complications; K21.9 Gastro-esophageal reflux disease without esophagitis; Y83.8 Other surgical procedures as the cause of abnormal reaction of the patient, or of later complication, without mention of misadventure at the time of the procedure; I65.29 Occlusion and stenosis of unspecified carotid artery; E78.5 Hyperlipidemia, unspecified; Z87.891 Personal history of nicotine dependence

== ENCOUNTER 2019-02-09 11:51 | Inpatient (IN) | payer MEDICARE ==
[~2019-02-09] VITALS: Ht 170.2 cm; Wt 96.2 kg
[~2019-02-09 11:51] MED LIST: BAYER CHEWABLE81 MG PO; LANTUS INSULIN10 ML SC; LOVASTATIN10 MG PO; LOVASTATIN20 MG PO; NAPROXEN375 M1 PO; NITROSTAT0.3 MG SL; NOVOLOG100 UNIT/1 SC; TOPROL XL100 MG PO; TRIBENZOR 40-11 EAC1 PO; ULTRAM50 MG PO
[2019-02-09 13:24] LABS: BASOPHILS 0.6 % (0-2); EOSINOPHILS 4.9 % (0-7); HEMATOCRIT 44.2 % (42.0-54.0); HEMOGLOBIN 15.6 g/dL (13.5-17.5); LYMPHOCYTES 26.4 % (15-50); MCH 31.2 pg (26.0-34.0); MCHC 35.3 g/dL (31.0-37.0); MCV 88.4 fL (80.0-100.0); MEAN PLATELET VOLUME 10.5 fL (7.4-10.4); MONOCYTES 10.5 % (2-11); NEUTROPHILS 57.6 % (40-80); PLATELET COUNT 253 10x3/uL (130-400); RDW 12.7 % (11.5-14.5); WBC 6.7 10x3/uL (4.8-10.8)
[2019-02-09 13:25] LABS: APPEARANCE CLEAR (CLEAR); BILIRUBIN NEGATIVE (NEGATIVE); COLOR YELLOW (YELLOW); GLUCOSE NEGATIVE (NEGATIVE); KETONE NEGATIVE (NEGATIVE); NITRITE NEGATIVE (NEGATIVE); PROTEIN NEGATIVE (NEGATIVE); UROBILINOGEN NORMAL (NORMAL)
[2019-02-09 13:33] LABS: APTT 28.4 SECONDS (22.8-39.4); INR 1.02 (0.85-1.17); PROTIME 12.9 SECONDS (11.6-15.0)
[2019-02-09 13:49] LABS: ALBUMIN 3.8 g/dL (3.4-5.0); ALKALINE PHOSPHATASE 72 U/L (46-116); ALT (SGPT) 70 U/L (10-68); BILIRUBIN - TOTAL 0.55 mg/dL (0.2-1.3); CALC OSMOLALITY 285 mosm/kg (275-300); CARBON DIOXIDE 29.5 mmol/L (21.0-32.0); CHLORIDE - SERUM 102 mmol/L (98-107); CHOLESTEROL, TOTAL 159 mg/dL (0-200); CREATININE - SERUM 0.9 mg/dL (0.6-1.3); GLUCOSE 164 mg/dL (74-106); PHOSPHOROUS 2.9 mg/dL (2.5-4.9); POTASSIUM - SERUM 3.4 mmol/L (3.5-5.1); PROTEIN - SERUM 7.9 g/dL (6.4-8.2); SODIUM 141 mmol/L (136-145); T4 THYROXIN - FREE 0.99 ng/dL (0.76-1.46); THYROID STIMULATING HORMONE 0.72 uIU/mL (0.36-3.74); UREA NITROGEN 15 mg/dL (7-18); URIC ACID 5.4 mg/dL (2.6-7.2); eGFR NON AFRICAN AMERICAN 89 mL/min (90-120)
[2019-02-12] VITALS (41 sets, daily range): BP systolic 94–139; BP diastolic 46–522; BMI 31.8; BMI 32.5
--- NOTE | 2019-02-12 13:38 | NUR ---
ATTEMPT DOUBLE LUMEN ON RIGHT SIDE, UNSUCCESSFUL. CORDIS PLACED IN RIGHT SIDE NECK. INCISION ON RIGHT LEG, NO VEIN REMOVED. CODY AND SCD ON RIGHT LEG. NORMAL DRESSING ON LEFT LEG. 4X4 COBAN. VEIN HARVESTED FROM LEFT LEG. NO LEG DRAINS.
--- NOTE | 2019-02-12 14:38 | NUR ---
1330 PT ARRIVED FROM OR SEDATED FROM SURGERY, ETT ATTACHED TO VENT BY RT, R IJ CVL DRESSING CDI WITH PLASMALYTE 100ML/HR, INSULIN 10 UNITS/HR, NOW AT 3 UNITS/HR, ZINACEF INITIATED, DOPAMINE 1.5MCG/KG/MIN OR 4.5ML/HR, R RADIAL ART LINE WITH WRIST PROTECTOR, GOOD WAVEFORM, ZEROED, MIDSTERNAL AND SUBSTERNAL INCISIONS CDI WITH SUBSTERNAL TPM WIRES ATTACHED TO TPM, TPM OFF, SUBSTERNAL CTX2 WITH BLOODY DRAINAGE NO AIR LEAK 20CM SUCTION, SUBSTERNAL ETTA DRAIN WITH BLOODY DRAINAGE COMPRESSED, CRITICORE DRAINING YELLOW URINE, LLE HARVEST SITES WITH COBAN FROM GROIN TO ANKLE, LLE WITH ONE INCISION DRESSING CDI, CODY AND SCD ON LLE, PULSES PALPABLE, UPDATED BY DR MATUTE, IN ROOM AND SET UP SECURITY CODE BEFORE LEAVING, ABGS OBTAINED, RECHECKED FOR ACCURACY AND CALLED TO DR RICARDO NURSES JERMAINE AND MANNY, KCL TREATED PER PROTOCOL, PT CURRENTLY ABLE TO DO 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
--- NOTE | 2019-02-12 16:21 | NUR ---
ELENA INITATED TITRATING TO BP, ABG OBTAINED AND KCL TREATED, DR MATUTE IN UNIT AND NOTIFIED
--- NOTE | 2019-02-12 17:01 | NUR ---
ABGS OBTAINED, NOTIFED DR MATUTE OF URINE OUTPUT 28 LAST HOUR, STATED TO CONTINUE TO MONITOR AFTER EXTUBATING
--- NOTE | 2019-02-12 17:13 | NUR ---
PT EXTUBATED AND RESTRAINTS REMOVED 1705, 2L O2 NC, EDUCATED ON COUGHING, DEEP BREATHING, SPLINTING WITH PILLOW
--- NOTE | 2019-02-12 17:30 | NUR ---
SPOKE WITH DR DAVION BRYANT, MORPHINE CHANGED TO 2MG Q1HPRN
--- NOTE | 2019-02-12 18:08 | NUR ---
DR MATUTE NOTIFIED OF URINE OUTPUT, ORDERS FOR 200ML NS OVER 2 HOURS
--- NOTE | 2019-02-12 19:00 | NUR ---
PT AOX4, PUPILS EQUAL AND REACTIVE. MOVES EXTREMITIES X4 AGAINST GRAVITY. SHALLOW RESPIRATIONS, LUNG SOUNDS CLEAR/DIMINISHED. 2L O2 VIA NC, SPO2 95. WEAK COUGH, REACHING UP TO 500 ON I/S X10. S1S2 HEARD, PERIPHERAL PULSES PRESENT. RT RADIAL JARED WITH GOODWAVE FORM. CTX2 INTACT AND DRAINING BLOODY DRAINAGE, DRSG CDI. SUBSTERNAL ETTA INTACT AND COMPRESSED. TPM CONNECTED, TURNED OFF. PT REPOSIITONED FOR COMFORT. FRESH WATER TO BEDSIDE. DENIES FURTHER NEEDS AT THIS TIME. CALL LIGHT AND BEDSIDE TABLE WITHIN PT REACH. CPOC.
--- NOTE | 2019-02-12 20:00 | NUR ---
PRN PAIN MEDICATION PROVIDED UPON REQUEST, PAIN 05/30. AWAKE AND ALERT. COUGH/DB WITH GOOD EFFORT. I/S COMPLETED REACHING UP TO 500 X10. VSS, DENIES FURTHER NEEDS AT THIS TIME. CALL LIGHT AND BEDSIDE TABLE WITHIN PT REACH. CPOC.
--- NOTE | 2019-02-12 21:00 | NUR ---
DOPAMINE WEANED OFF AT THIS TIME
--- NOTE | 2019-02-12 23:00 | NUR ---
REASSESSMENT COMPLETE, NO NEW CHANGES AT THIS TIME. PT REPOSITIONED FOR COMFORT. I/S COMPLETED REACHING 750 X10. VSS, CPOC.
[2019-02-13] VITALS (48 sets, daily range): BP systolic 86–132; BP diastolic 41–64; Ht 170.2 cm; Wt 96.2 kg
--- NOTE | 2019-02-13 01:10 | NUR ---
WEAK COUGH, I/S COMPLETED REACHING 750 X10. PT REPOSITIONED FOR COMFORT. PRN PAIN MEDICATION GIVEN UPON REQUEST, PAIN 05/30. FRESH WATER TO BEDSIDE. DENIES FURTHER NEEDS AT THIS TIME. CALL LIGHT AND BEDSIDE TABLE WITHIN PT REACH. CPOC.
--- NOTE | 2019-02-13 03:00 | NUR ---
REASSESSMENT COMPLETE, NO NEW CHANGES AT THIS TIME. PT REPOSITIONED FOR COMFORT. COUGH/DB WITH GOOD EFFORT. I/S COMPLETED REACHING 750 X10. FRESH WATER TO BEDSIDE. VSS. PT DENIES FURTHER NEEDS AT THIS TIME. CALL LIGHT WITHIN PT REACH. CPOC.
[2019-02-13 05:26] LABS: HEMATOCRIT 38.9 % (42.0-54.0); HEMOGLOBIN 13.1 g/dL (13.5-17.5); MCH 30.5 pg (26.0-34.0); MCHC 33.7 g/dL (31.0-37.0); MCV 90.7 fL (80.0-100.0); MEAN PLATELET VOLUME 10.4 fL (7.4-10.4); RBC 4.29 10x6/uL (4.20-6.10); RDW 13.3 % (11.5-14.5)
[2019-02-13 05:40] LABS: ALBUMIN 3.2 g/dL (3.4-5.0); ANION GAP 12.8 mmol/L (8-16); BILIRUBIN - TOTAL 0.78 mg/dL (0.2-1.3); CALCIUM 7.2 mg/dL (8.5-10.1); CARBON DIOXIDE 26.1 mmol/L (21.0-32.0); CREATININE - SERUM 1.3 mg/dL (0.6-1.3); POTASSIUM - SERUM 3.9 mmol/L (3.5-5.1); PROTEIN - SERUM 5.9 g/dL (6.4-8.2)
--- NOTE | 2019-02-13 06:15 | NUR ---
UP TO CHAIR WITH ASSIST X2 RN. COMPLETE LINEN CHANGE PROVIDED. VSS, COUGH/DB WITH GOOD EFFORT. FRESH WATER TO BEDSIDE. DENIES FURTHER NEEDS. CALL LIGHT WITHIN PT REACH. CPOC.
--- NOTE | 2019-02-13 09:55 | NUR ---
0700 PT RECIEVED UP IN CHAIR ALERT AN DORIENTED DENIES ALL NEEDS, O2 2L NC R IJ CVL DRESSING CDI WITH PLASMALYTE 100ML/HR, ZINACEF 11.4ML/HR, INSULIN 1ML/HR, MIDSTERNAL AND SUBSTERNAL DRESSINGS CDI SUBSTERNAL ETTA DRAIN COMPRESSED, SUBSTERNAL CTX2 20CM SUCTION NO AIR LEAK BLOODY DRAINAGE CRITICORE DRAINING YELLOW URINE, RLE AND LLE INCISION SITES CDI 0800 BP LOW 90S, ELENA INITATED, DR MATUTE NOTIFIED 0830 DR MATUTE IN UNIT ORDERS FOR PICC LINE, DC A LINE, START SLIDING SCALE INSULIN AND DC IV INSULIN 0900 A LINE DCD PER PROTOCOL, NO SIGNS OF BLEEDING, TIP INTACT, TPM DETACHED AND WIRES COILED TO CHEST PER DR MATUTE, SPOKE WITH MARY VASCULAR ACCESS NURSE STATED SHE WOULD COME SHORTLY FOR PICC LINE, PT ASKED TO SIGN CONSENT FORM, VERIFIED WITH ANOTHER NURSE, PAIN MEDICATION FOR INCISIONAL CHEST PAIN GIVEN, CALL LIGHT WITHIN REACH
--- NOTE | 2019-02-13 12:23 | OP ---
PATIENT NAME: ROSIBEL JONES MEDICAL RECORD: [id number] :[birth year] LOCATION:D.CVI D.CV02 ADMISSION DATE:02/12/19 SURGEON: MARY ANNE MATUTE MD DATE OF OPERATION: 02/12/2019 SURGEON: Mary Anne Matute MD ASSISTANTS: 1. Bismark Mendiola MD 2. Harmeet Santana OPERATIONS PERFORMED: 1. Coronary artery bypass graft times 3 (left internal mammary to LAD, reverse saphenous vein graft from aorta to second diagonal, aorta to posterior descending artery). 2. Endoscopic saphenous vein harvest. PREOPERATIVE DIAGNOSES: Coronary artery disease; carotid stenosis, status post carotid endarterectomy. POSTOPERATIVE DIAGNOSES: Coronary artery disease; carotid stenosis, status post carotid endarterectomy. ANESTHESIA: General endotracheal anesthesia. ESTIMATED BLOOD LOSS: Total cardiopulmonary bypass with Cell Saver retransfusion. COMPLICATIONS: None. SPECIMENS: None. CONDITION: Stable. DISPOSITION: CV ICU. OPERATIVE FINDINGS: 1. Transesophageal echocardiography with good contractility. Trace mitral and tricuspid regurgitation without change after cardiopulmonary bypass. 2. No sizable greater saphenous vein visualized below the knee on the right and no vein harvested from the right. Incision on the left leg revealed a good quality greater saphenous vein that was harvested endoscopically with the exception of one incision for a large side branch in the mid thigh. 3. Good quality left internal mammary artery. The LAD was a severely diseased 1.5-mm vessel and the 1.5-mm probe would not pass proximally to the second diagonal, which was grafted separately. It did pass distally to the apex and there was good Doppler flow after anastomosis and after reversal of heparin. 4. Second diagonal of 1.25 mm. 5. Posterior descending artery 2.0 mm with severe disease, anastomosis at the bifurcation point and in the patient's plaque. The ongoing right had severe disease, was about 1.0 mm as was the posterolateral, which had less disease and was not bypassed. OPERATIVE INDICATION: Coronary artery disease with unstable angina. OPERATIVE REPORT [id number] ROSIBEL JONES PROCEDURE IN DETAIL: The patient was brought to the operating suite. General anesthesia was obtained. The patient was prepped and draped. Initial incision of the right leg with small vein; therefore, incision on the left leg. Vein visualized and endoscopic vein harvest performed in the left lower extremity with exception of one open incision. Side branch divided with electrocautery. Vessel ligated proximally and distally, removed. Side branches were tied and thin sites oversewn. The leg was later irrigated and closed in 2 layers with elastic wraps on both legs. Median sternotomy incision was made. Subcutaneous tissue was divided with electrocautery. Sternum was divided with a saw. Left hemisternum was elevated. Left pleural cavity was entered. Left internal mammary artery and vein were taken down as a pedicle graft. Pericardium was opened. Heparin was given. Aorta was cannulated. Dual stage venous cannula was inserted. Internal mammary was clipped distally and made ready for anastomosis. After activated clotting time was appropriately elevated, the patient was placed on cardiopulmonary bypass. Sites for distal anastomoses were selected. Antegrade cardioplegia cannula was inserted. Crossclamp was placed. Cardioplegia given antegrade and this was repeated at 15- to 20-minute intervals during the crossclamp time including down the completed vein grafts. Distal anastomosis was performed in standard technique utilizing 8-0 on the small diagonal vessel and proximal anastomosis in single crossclamp technique. Aortic root de-aired and flow restored. Proximal and distal anastomotic sites were inspected for bleeding. The patient resumed spontaneous rhythm with some bradycardia and fully rewarmed, weaned from cardiopulmonary bypass, and was stable. The patient was decannulated. Aortic cannulation site was oversewn with a pledgeted Prolene suture. Protamine was given. Thorough irrigation was undertaken. Grafts lay appropriately and hemostasis was assured. Drains were placed in mediastinum and left pleural cavity, one with the tip at the right pleural cavity. The atrial and ventricular pacing wires were placed. Pericardial fat was loosely reapproximated in the midline. Left chest was evacuated and irrigated. Internal mammary harvest site was made hemostatic. Sternum was closed with wires. Fascia was closed. Subcutaneous tissue was closed. Skin was closed. Dermabond was placed. Needle and sponge counts were reported as correct. The patient was taken to the ICU in stable condition. TRANSINT:[id number] Voice Confirmation ID: [id number] DOCUMENT ID: [id number] MARY ANNE MATUTE MD at 1223 CC: RANI DUGAN M.D. and LEI HAMPTON MD [id number] DICTATION DATE: 02/12/19 [facility] DIRECTOR: 02/12/19 1607 ADM IN [facility] [address] [place] [id number]
--- NOTE | 2019-02-13 15:25 | NUR ---
1200 ELENA WEANED OFF 1300 DR MATUTE IN ROOM, REMOVED CTX2, PT TOELRATED WELL 1330 VASCULAR ACCESS HERE FOR PICC LINE 1320 RECIEVED CALL FROM MARY VASCULAR ACCESS, ORDERS TO PULL BACK LINE 2 CM/2 DOT MARKINGS, DONE WITHOUT DIFFICULTY AND DRESSING REAPPLIED
--- NOTE | 2019-02-13 16:56 | MORECARE ---
CASE MANAGEMENT DISCHARGE SUMMARY PATIENT: ROSIBEL JONES UNIT: [id number] ADM DATE: 02/12/19 AGE: 68 : 50 SEX: M [facility] AUTHOR: DELMER GALVAN PHYSICIAN: REFERRING PHYSICIAN: MARY ANNE MATUTE MD DATE OF SERVICE: 02/13/19 Discharge Plan Patient Name: ROSIBEL JONES [facility] [facility] 1950 Planned Disposition: Anticipated Discharge Date: Discharge Date: Expected LOS: Initial Reviewer: [email or web address] Initial Review Date: 02/12/2019 Generated: 02/13/19 5:56 pm DCPIA - Discharge Planning Initial Assessment Updated by [email or web address]: Melissa Jones on 02/13/19 4:52 pm * Is the patient Alert and Oriented? Yes * How many steps to enter\exit or inside your home? * PCP [facility]I [facility] * [facility] * Preadmission Environment Home with Family * ADLs Independent * Equipment None * List name and contact numbers for known caregivers / representatives who currently or will assist patient after discharge: MAURICE JONES - SPOUSE - [phone] * Verbal permission to speak to the caregivers and representatives has been obtained from the patient. No * Community resources currently utilized None * Additional services required to return to the preadmission environment? No * Can the patient safely return to the preadmission environment? Yes * Has this patient been hospitalized within the prior 30 days at any hospital? Yes External Providers External Provider: OTHER-OTHER Next Contact Date: Service Request Date: Service Type: Resolution: Reviewer: Comments: Patient Name: ROSIBEL JONES Page 36406 at 1656 All edits/amendments must be made on the electronic document DICTATION DATE: 02/13/191654 CAMP HOUSEKEEPER: JOSE 02/13/191654 RPT#: [id number] DC DATE: STATUS: ADM IN [facility] [address] [place] [address] END OF REPORT
--- NOTE | 2019-02-13 17:13 | MORECARE ---
CASE MANAGEMENT DISCHARGE SUMMARY PATIENT: ROSIBEL JONES UNIT: [id number] ADM DATE: 02/12/19 AGE: 68 : 50 SEX: M ROOM/BED: D.02 AUTHOR: COLE,DOC PHYSICIAN: REFERRING PHYSICIAN: MARY ANNE MATUTE MD DATE OF SERVICE: 02/13/19 Discharge Plan Patient Name: ROSIBEL JONES Facility: [facility]:[place] : 1950 Planned Disposition: Anticipated Discharge Date: Discharge Date: Expected LOS: Initial Reviewer: [email or web address] Initial Review Date: 02/12/2019 Generated: 02/13/19 6:12 pm Comments DCP- Discharge Planning Updated by [email or web address]: Melissa Jones on 02/13/19 4:[address] Patient Name: ROSIBEL JONES Admission Status: Elective Accout number: [id number] Admission Date: 02-12-2019 : 1950 Admission Diagnosis: Attending: MARY ANNE MATUTE Current LOS: 1 Anticipated DC Date: Planned Disposition: Primary Insurance: [employer] CHOICE PPO MCR ADVANT Discharge Planning Comments: CM met with patient and spouse at bedside after obtaining verbal consent. Patient states he lives at home with his (Sanam). Patient states that he plans to return to their home. Patient states that his insurance will pay for 3 weeks of cardiac rehab and he would like for CM to check and see if he could do this at the [facility]. [phone] and fax[facility] as requested [phone]. [facility] stated that they do Cardiac Rehab. Patient denies any medical equipment or Home Health services prior to admission. CM will continue to follow and assist as needed with discharge planning / needs. Janitor Caretaker: Melissa Jones DCPIA - Discharge Planning Initial Assessment Updated by [id number]: Melissa Jones on 02/13/19 4:52 pm * Is the patient Alert and Oriented? Yes * How many steps to enter\exit or inside your home? * PCP [facility] * [facility] * Preadmission Environment Home with Family * ADLs Independent * Equipment None * List name and contact numbers for known caregivers / representatives who currently or will assist patient after discharge: SANAM JONES - SPOUSE - [phone] * Verbal permission to speak to the caregivers and representatives has been obtained from the patient. No * Community resources currently utilized None * Additional services required to return to the preadmission environment? No * Can the patient safely return to the preadmission environment? Yes * Has this patient been hospitalized within the prior 30 days at any hospital? Yes Last DP export: 02/13/19 3:56 p Patient Name: ROSIBEL JONES Page 64106 at 1713 All edits/amendments must be made on the electronic document DICTATION DATE: 02/13/191711 MASTER TAX ADVISOR: JOSE 02/13/191711 RPT#: [id number] DC DATE: STATUS: ADM IN [facility] [address] [place] [address] END OF REPORT
--- NOTE | 2019-02-13 17:58 | NUR ---
PT ATE 50% FULL LIQUID TRAY, ZOFRAN PER EMAR FOR NAUSEA
--- NOTE | 2019-02-13 20:18 | NUR ---
PT REQUESTS PAIN MEDICATION FOR BREAK-THROUGH PAIN 08/30. PRN MORPHINE GIVEN PER ORDER. PT AWAKE AND ALERT. SHALLOW RESPIRATIONS, RR 27. HOB @ 35 DEGREES, PT REPOSITIONED FOR COMFORT. ROOM VISIBLE FROM NURSES STATION, CALL LIGHT WITHIN PT REACH. CPOC.
--- NOTE | 2019-02-13 21:00 | NUR ---
HS MEDS GIVEN, FRESH WATER PROVIDED. PT REPOSITIONED FOR COMFORT. VSS, CALL LIGHT WITHIN PT REACH. CPOC.
--- NOTE | 2019-02-13 21:35 | NUR ---
UCAFIB ON MONITOR, RATE 140-150'S. BP 114/59. NOTIFIED OF CHANGE AND NEW ORDERS REC'D FOR AMIODARONE BOLUS/GTT, SEE JAN.
--- NOTE | 2019-02-13 22:20 | NUR ---
PT REMAINS IN UNCAFIB, MATUTE NOTIFIED. SECOND AMIODARONE BOLUS ORDERED, SEE JAN.
--- NOTE | 2019-02-13 23:00 | NUR ---
REASSESSMENT COMPLETE, NO NEW CHANGES AT THIS TIME, PT REMAINS IN AFIB RATE 110'S. RESTING QUIETLY AT THIS TIME. REPOSITIONED FOR COMFORT. DENIES NEEDS. CALL LIGHT AND BEDSIDE TABLE WITHIN PT REACH. CPOC.
[2019-02-14] VITALS (28 sets, daily range): BP systolic 90–133; BP diastolic 40–71
--- NOTE | 2019-02-14 01:00 | NUR ---
PT RESTING QUIETLY, REPOSITIONED FOR COMFORT. PARTIAL LINEN CHANGE PROVIDED. VSS, DENIES FURTHER NEEDS. CALL LIGHT AND BEDSIDE TABLE WITHIN PT REACH. CPOC.
--- NOTE | 2019-02-14 03:10 | NUR ---
REASSESSMENT COMPLETE, SEE FLOWSHEET FOR ALL CHANGES. NS ON MONITOR AT THIS TIME. PT RESTING QUIETLY. REPOSITIONED FOR COMFORT. I/S COMPLETED REACHING 500 X10. CALL LIGHT WITHIN PT REACH, CPOC.
[2019-02-14 05:26] LABS: HEMATOCRIT 31.2 % (42.0-54.0); MCH 30.2 pg (26.0-34.0); MCHC 33.3 g/dL (31.0-37.0); MCV 90.7 fL (80.0-100.0); MEAN PLATELET VOLUME 10.4 fL (7.4-10.4); RBC 3.44 10x6/uL (4.20-6.10); RDW 13.3 % (11.5-14.5); WBC 12.9 10x3/uL (4.8-10.8)
[2019-02-14 05:31] LABS: HEMOGLOBIN 10.4 g/dL (13.5-17.5)
--- NOTE | 2019-02-14 05:45 | NUR ---
PT UP TO CHAIR, COMPLETE LINEN CHANGE PROVIDED. FRESH WATER TO BEDSIDE. VSS, NSR ON MONITOR.
[2019-02-14 06:17] LABS: ALBUMIN 2.5 g/dL (3.4-5.0); ANION GAP 16.7 mmol/L (8-16); BILIRUBIN - TOTAL 1.34 mg/dL (0.2-1.3); CARBON DIOXIDE 22.9 mmol/L (21.0-32.0); CREATININE - SERUM 1.5 mg/dL (0.6-1.3); POTASSIUM - SERUM 3.6 mmol/L (3.5-5.1); PROTEIN - SERUM 5.1 g/dL (6.4-8.2)
[2019-02-14 06:49] LABS: CALCIUM 6.9 mg/dL (8.5-10.1)
--- NOTE | 2019-02-14 08:30 | NUR ---
DR MATUTE BY TO CHECK ON PT. NEW ORDERS RECEIVED.
--- NOTE | 2019-02-14 09:02 | NUR ---
Nutrition Follow Up: Diet has been advanced to full liquid and pt ate 50% of dinner last night Pt is going to view regular diabetic menu but is not too interested in solid foods at this time because of nausea. Pt is drinking some Ensure BG 300 today BG 260, 204, 211, 179, 177 yesterday- unlikely elevated BG is diet related Weight [address] following
--- NOTE | 2019-02-14 12:27 | NUR ---
PT EATING LUNCH. FAMILY AT BEDSIDE. NO NEEDS VOICED.
--- NOTE | 2019-02-14 12:55 | MORECARE ---
CASE MANAGEMENT DISCHARGE SUMMARY PATIENT: ROSIBEL JONES UNIT: [id number] ADM DATE: 02/12/19 AGE: 68 : 50 SEX: M ROOM/BED: D.02 AUTHOR: COLE,DOC PHYSICIAN: REFERRING PHYSICIAN: MARY ANNE MATUTE MD DATE OF SERVICE: 02/14/19 Discharge Plan Patient Name: ROSIBEL JONES Facility: [facility]:[place] : 1950 Planned Disposition: Anticipated Discharge Date: Discharge Date: Expected LOS: Initial Reviewer: [email or web address] Initial Review Date: 02/12/2019 Generated: 02/14/19 1:55 pm Comments DCP- Discharge Planning Updated by [id number]: Melissa Jones on 02/14/19 11:[address] CM [facility]. CM will get those records and fax to Jennifer as soon as they are available. CM will continue to follow and assist as needed with discharge planning / needs. DCP- Discharge Planning Updated by [email or web address]: Melissa Jones on 02/13/19 4:[address] Patient Name: ROSIBEL JONES Admission Status: Elective Accout number: [id number] Admission Date: 02-12-2019 : 1950 Admission Diagnosis: Attending: MARY ANNE MATUTE Current LOS: 1 Anticipated DC Date: Planned Disposition: Primary Insurance: HU[employer] CHOICE PPO MCR ADVANT Discharge Planning Comments: CM met with patient and spouse at bedside after obtaining verbal consent. Patient states he lives at home with his (Sanam). Patient states that he plans to return to their home. Patient states that his insurance will pay for 3 weeks of cardiac rehab and he would like for CM to check and see if he could do this at the [facility]. [phone] and faxed records as requested [phone]. [facility] stated that they do Cardiac Rehab. Patient denies any medical equipment or Home Health services prior to admission. CM will continue to follow and assist as needed with discharge planning / needs. Osteopathic Physician: Melissa Jones DCPIA - Discharge Planning Initial Assessment Updated by [id number]: Melissa Jones on 02/13/19 4:52 pm * Is the patient Alert and Oriented? Yes * How many steps to enter\exit or inside your home? * PCP LEI ZAMBRANO * Pharmacy [facility] * Preadmission Environment Home with Family * ADLs Independent * Equipment None * List name and contact numbers for known caregivers / representatives who currently or will assist patient after discharge: SANAM JONES - SPOUSE - [phone] * Verbal permission to speak to the caregivers and representatives has been obtained from the patient. No * Community resources currently utilized None * Additional services required to return to the preadmission environment? No * Can the patient safely return to the preadmission environment? Yes * Has this patient been hospitalized within the prior 30 days at any hospital? Yes Last DP export: 02/13/19 4:12 p Patient Name: ROSIBEL JONES Page 05250 at 1255 All edits/amendments must be made on the electronic document DICTATION DATE: 02/14/19 1255 [place] ATTORNEY: JOSE 02/14/19 1255 RPT#: [id number] DC DATE: STATUS: ADM IN [facility] [address] [place] [address] END OF REPORT
--- NOTE | 2019-02-14 13:34 | NUR ---
PT ASKED FOR GLUCOSE TO BE CHECKED. SAYS SEEING SPOTS. CHECKED. PT NOW UP WITH PHYSICAL THERAPY. AMOS CATHETER HAS BEEN REMOVED, TIP INTACT.
--- NOTE | 2019-02-14 17:07 | NUR ---
CALLED AND SPOKE WITH DR OBRIEN ABOUT PT C/O SOB. WILL ADD ORDERS FOR NEB TX.
--- NOTE | 2019-02-14 18:03 | NUR ---
INSULIN GTT STARTED. 10UNIT BOLUS GIVEN PER PROTOCOL AND STARTED AT 4 UNITS/HR. PREVIOUSLY 20 UNITS REGULAR INSULIN WAS GIVEN ORDERED.
--- NOTE | 2019-02-14 19:30 | NUR ---
PT AOX4, PUPILS EQUAL AND REACTIVE. UP IN CHAIR, SHALLOW RESPIRATIONS, LUNG SOUNDS CLEAR/DIMINISHED. SPO2 95, 4L O2 VIA NC. COUGH/DB WITH GOOD EFFORT. S1S2 HEARD, PERIPHERAL PULSES PRESENT. BOWEL SOUNDS ACTIVE. URINAL AT BEDSIDE. CHEST DRESSINGS CDI. BILATERAL LEG DRESSINGS CDI. RT PICC LINE CDI, INSULIN GTT INFUSING. VSS. CALL LIGHT AND BEDSIDE TABLE WITHIN PT REACH. CPOC.
--- NOTE | 2019-02-14 20:29 | NUR ---
HS MEDS GIVEN, FRESH WATER TO BEDSIDE. COUGH/DB WITH GOOD EFFORT, CLEAR SPUTUM. I/S COMPLETED REACHING 750 X10. PT REQUESTS TO REMAIN UP IN CHAIR AT THIS TIME. VSS, NO COMPLAINTS. CALL LIGHT AND BEDSIDE TABLE WITHIN PT REACH. CPOC.
--- NOTE | 2019-02-14 23:30 | NUR ---
REASSESSMENT COMPLETE, NO NEW CHANGES AT THIS TIME. COUGH/DB WITH GOOD EFFORT. I/S COMPLETED REACHING 750 X10. FRESH WATER TO BEDSIDE. PT DENIES ANY NEEDS AT THIS TIME. CALL LIGHT AND BEDSIDE TABLE WITHIN PT REACH. CPOC.
[2019-02-15] VITALS (27 sets, daily range): BP systolic 96–158; BP diastolic 40–91
--- NOTE | 2019-02-15 01:30 | NUR ---
PT RESTING QUIETLY WITH VSS. NO S/S OF DISTRESS. DENIES NEEDS. CALL LIGHT AND BEDSIDE TABLE WITHIN PT REACH. CPOC.
--- NOTE | 2019-02-15 03:30 | NUR ---
REASSESSMENT COMPLETE, NO NEW CHANGES AT THIS TIME. COUGH/DB WITH GOOD EFFORT. I/S COMPLETE REACHING 750 X10. FRESH WATER TO BEDSIDE. PARTIAL LINEN CHANGE. DENIES NEEDS. CALL LIGHT AND BEDSIDE TABLE WITHIN PT REACH. CPOC.
--- NOTE | 2019-02-15 05:30 | NUR ---
PT ASSITED WITH ORAL CARE. LINEN CHANGE PROVIDED. UP IN CHAIR, COUGH/DB WITH GOOD EFFORT. I/S COMPLETED REACHING 750 X10. FRESH WATER TO BEDSIDE. VSS, NO C/O PAIN AT THIS TIME. CALL LIGHT AND BEDSIDE TABLE WITHIN PT REACH. CPOC.
[2019-02-15 05:37] LABS: HEMATOCRIT 33.1 % (42.0-54.0); HEMOGLOBIN 11.3 g/dL (13.5-17.5); MCH 30.6 pg (26.0-34.0); MCHC 34.1 g/dL (31.0-37.0); MCV 89.7 fL (80.0-100.0); MEAN PLATELET VOLUME 10.3 fL (7.4-10.4); RBC 3.69 10x6/uL (4.20-6.10); RDW 13.2 % (11.5-14.5)
[2019-02-15 05:39] LABS: WBC 8.5 10x3/uL (4.8-10.8)
[2019-02-15 05:56] LABS: ALBUMIN 2.6 g/dL (3.4-5.0); ANION GAP 12.4 mmol/L (8-16); BILIRUBIN - TOTAL 2.49 mg/dL (0.2-1.3); CALCIUM 8.2 mg/dL (8.5-10.1); CARBON DIOXIDE 26.8 mmol/L (21.0-32.0); CREATININE - SERUM 1.3 mg/dL (0.6-1.3); POTASSIUM - SERUM 3.2 mmol/L (3.5-5.1); PROTEIN - SERUM 6.2 g/dL (6.4-8.2)
--- NOTE | 2019-02-15 09:00 | NUR ---
SHIFT ASSESSMENT COMPLETE. MORNING MEDICATIONS PROVIDED. PT HAS EATEN BREAKFAST. AT BEDSIDE. CALL LIGHT IN REACH.
--- NOTE | 2019-02-15 14:00 | NUR ---
PT WALKED WITH PHYSICAL THERAPY. FARTHER DISTANCE THAN MORNING WALK.
--- NOTE | 2019-02-15 18:35 | NUR ---
BATH PROVIDED. MIDSTERNAL, SUBSTERNAL AND LEG DRESSINGS CHANGED. NEW GOWN. PT UP IN CHAIR AT BEDSIDE. DENIES ADDITIONAL NEEDS. CALL LIGHT IN REACH.
--- NOTE | 2019-02-15 19:14 | NUR ---
CALL LIGHT ANSWERED, PATIENT STATES "I NEED HELP, I NEED TO CLEAN MY NOSE" TISSUES ARE WITHIN REACH, ASKED PATIENT IF HE NEEDED ANYTHING ELSE, HE STATED "NO THIS WILL BE OK, I MAY JUST NEED HELP PLACING MY NC BACK ON" NC PLACED BACK. CALL LIGHT WITHIN REACH. SHIFT ASSESSMENT COMPLETED PER FLOW SHEET. AAOX4. PPP. PULLING 500-750 ON IS. COUGH STRONG, CLEAR SPUTUM NOTED. RT UPPER ARM PICC LINE PATENT, DRESSING CDI, NO SIGNS OF INFECTION OR INFILTRATION. DENIES OTHER NEEDS. CALL LIGHT WITHIN REACH. WILL CONTINUE TO MONITOR.
--- NOTE | 2019-02-15 21:01 | NUR ---
SCHEDULED MEDS GIVEN, DENIES NEEDS, CALL LIGTH WITHIN REACH.
--- NOTE | 2019-02-15 23:14 | NUR ---
REASSESSMENT COMPLETED PER FLOW SHEET, SEE FOR DETAILS. NO ACUTE CHANGES NOTED. DENIES NEEDS. WILL CONTINUE TO MONITOR.
--- NOTE | 2019-02-15 23:47 | NUR ---
CALL LIGHT ANSWERED, C/O BEING COLD, BLANKET PROVIDED PER HIS REQUEST, DENIES OTHER NEEDS. CALL LIGHT WITHIN REACH.
[2019-02-16] VITALS (24 sets, daily range): BP systolic 117–169; BP diastolic 40–78
--- NOTE | 2019-02-16 00:21 | NUR ---
CALL LIGHT ANSWERED, STATES HE PRESSED IT ON ACCIDENT, DENIES NEEDS. WILL CONTINUE TO MONITOR.
--- NOTE | 2019-02-16 01:00 | NUR ---
RESTING, DENIES NEEDS AT THIS TIME. WILL CONTINUE TO MONITOR.
--- NOTE | 2019-02-16 01:50 | NUR ---
CALL LIGHT ANSWERED, WATER PROVIDED PER PATIENT'S REQUEST, DENIES OTHER NEEDS. CALL LIGHT WITHIN REACH.
--- NOTE | 2019-02-16 03:16 | NUR ---
REASSESSMENT COMPLETED PER FLOW SHEET, SEE FOR DETAILS. NO ACUTE CHANGES NOTED. DENIES NEEDS. CALL LIGHT WITHIN REACH.
--- NOTE | 2019-02-16 05:18 | NUR ---
OUT OF ROOM FOR AM XR
--- NOTE | 2019-02-16 05:31 | NUR ---
PATIENT BACK IN ROOM FORM AM XR
[2019-02-16 06:33] LABS: HEMATOCRIT 30.6 % (42.0-54.0); HEMOGLOBIN 10.5 g/dL (13.5-17.5); MCH 30.6 pg (26.0-34.0); MCHC 34.3 g/dL (31.0-37.0); MCV 89.2 fL (80.0-100.0); MEAN PLATELET VOLUME 10.6 fL (7.4-10.4); RBC 3.43 10x6/uL (4.20-6.10); WBC 7.6 10x3/uL (4.8-10.8)
[2019-02-16 06:59] LABS: ALBUMIN 2.5 g/dL (3.4-5.0); ALKALINE PHOSPHATASE 104 U/L (46-116); BILIRUBIN - TOTAL 1.02 mg/dL (0.2-1.3); CALCIUM 8.6 mg/dL (8.5-10.1); CHLORIDE - SERUM 99 mmol/L (98-107); GLUCOSE 144 mg/dL (74-106); POTASSIUM - SERUM 3.6 mmol/L (3.5-5.1); SODIUM 135 mmol/L (136-145)
[2019-02-16 07:04] LABS: ALT (SGPT) 100 U/L (10-68); CALC OSMOLALITY 273 mosm/kg (275-300); CREATININE - SERUM 0.8 mg/dL (0.6-1.3); UREA NITROGEN 15 mg/dL (7-18); eGFR NON AFRICAN AMERICAN > 90 mL/min (90-120)
--- NOTE | 2019-02-16 11:12 | NUR ---
Nutrition Follow Up: Pt stated that his appetite is improving. He said that he likes Glucerna and will drink 1/d. RD encouraged pt to continue increasing po intake as able. Diet: ADA PO Intake: 49% meal avg Wt gain noted I>O BM: 02/16/19 Labs reviewed Meds noted including Reglan Rec continue current diet. Will order Glucerna 1x/d. RD following.
--- NOTE | 2019-02-16 15:03 | TEE ---
PATIENT:ROSIBEL JONES MEDICAL RECORD: [id number] LOCATION:[place] [address] AGE OF PATIENT: 68 ADMISSION DATE: 02/12/19 SEX: M REFERRING PHYSICIAN: INTERPRETING PHYSICIAN: HA MARTINEZ MD TRANSESOPHAGEAL ECHOCARDIOGRAM Date: VIRY CHARGE INDICATIONS: PREMEDICATIONS: PATIENT'S RESPONSE PROCEDURE DOPPLER MEASUREMENTS: LVIT LA PA RA LVOT RVOT Asc. Ao AV Gradient Peak AV Mean AV Area MV Gradient Peak MV Mean MV Area INTERPRETATION: Doppler: 2-D: COLOR FLOW DOPPLER NORMAL SALINE STUDY: MISCELLANOUS: DIAGNOSIS: PLAN: Door Serviceman: Assistant Principal: COMMENTS: DATE OF SERVICE: 02/12/2019 PROCEDURE: Transesophageal echo evaluation of valvular structures during bypass surgery. FINDINGS: 1. Left ventricular chamber size is within normal limits. Left ventricular systolic function is normal. Overall ejection fraction estimated at 60%. 2. Left atrium, right atrium and right ventricular chamber sizes are within TRANSESOPHAGEAL ECHOCARDIOGRAM REPORT [id number] MANUEL JONES normal limits. 3. Valvular structures have normal structure and motion. 4. Doppler interrogation reveals trace mitral regurgitation, trace tricuspid regurgitation, no other valvular insufficiency or stenosis. 5. No evidence of pericardial effusion or left ventricular thrombus. TRANSINT:[id number] Voice Confirmation ID: [id number] DOCUMENT ID: [id number] at 1503 CC: [id number] DICTATION DATE: 02/12/19 1613 SEAM STEAMER: 02/13/19 0949 ADM IN [facility] [address] [place] [address]
--- NOTE | 2019-02-16 18:27 | NUR ---
PT CALLED NURSE TO STATE -HALLUCINATING-STATED HE THOUGHT HE SAW SAME TELEVISION SHOW TWICE-?-ENCOURAGED SLEEP
--- NOTE | 2019-02-16 23:00 | NUR ---
1900 REPORT RECEIVED CARE ASSUMED. IS 1000. ASSESSMENT DONE SEE FLOW SHEET. VSS. PT AMBULATED FROM BET TO BATHROOM MINIMAL ASSISTANCE NEEDED. NO SIGNS OF ACUTE DISTRESSS. COMPLETE BED CHANGE. CHAIR SET UP. 2100 MEDS GIVEN PER MAR. NO DIFFICULTY SWALLOWING NOTED. PT AMBULATED TO BATHROOM MINIMAL ASSISTANCE GIVEN. VSS. 2300 REASSESSMENT DONE SEE FLOW SHEET. VSS. NO SIGNS OF ACUTE DISTRESS NOTED. WILL CONTINUE TO MONITOR.
[2019-02-17] VITALS (18 sets, daily range): BP systolic 98–178; BP diastolic 48–92
--- NOTE | 2019-02-17 01:37 | NUR ---
0000 FSBS. CRACKERS AND PEANUT BUTTER PROVIDED WITH MILK. PER PT REQUEST. 0137 CALL LIGHT ANSWERED. PT STATES HE FEELS LIKE IS BLOOD SUGAR IS LOW. RECHECK FSBS 100. VSS. WILL CONITNUE TO MONITOR.
--- NOTE | 2019-02-17 03:00 | NUR ---
REASSESSMENT DONE SEE FLOW SHEET. VSS. PT UNABLE TO SLEEP.
--- NOTE | 2019-02-17 05:00 | NUR ---
COMPLETE BED BATH GIVEN. PT AMBULATED TO CHAIR. COMPLETED PA AND LATERAL WELL WITH NO DIFFICULTIES. DRESSING CHANGE COMPLETED. VSS.
[2019-02-17 05:08] LABS: HEMOGLOBIN 10.9 g/dL (13.5-17.5); MCH 30.6 pg (26.0-34.0); MCHC 34.1 g/dL (31.0-37.0); MCV 89.9 fL (80.0-100.0); RBC 3.56 10x6/uL (4.20-6.10); RDW 13.2 % (11.5-14.5); WBC 7.3 10x3/uL (4.8-10.8)
[2019-02-17 05:32] LABS: ALBUMIN 2.6 g/dL (3.4-5.0); ALKALINE PHOSPHATASE 101 U/L (46-116); ALT (SGPT) 92 U/L (10-68); BILIRUBIN - TOTAL 0.77 mg/dL (0.2-1.3); CHLORIDE - SERUM 100 mmol/L (98-107); CREATININE - SERUM 0.8 mg/dL (0.6-1.3); GLUCOSE 158 mg/dL (74-106); PROTEIN - SERUM 6.5 g/dL (6.4-8.2); SODIUM 136 mmol/L (136-145); eGFR NON AFRICAN AMERICAN > 90 mL/min (90-120)
[2019-02-17 05:33] LABS: CALC OSMOLALITY 273 mosm/kg (275-300); POTASSIUM - SERUM 4.3 mmol/L (3.5-5.1); UREA NITROGEN 11 mg/dL (7-18)
--- NOTE | 2019-02-17 10:29 | NUR ---
0730-RECIEVED AWAKE AND ALERT SITTING UP IN [id number] ON PORTABLE TELEMETRY AND REMOVED FROM [id number] CUFF REMOVED FOR EASIER MOBILITY-PT ON ROOM AIR-STRONGLY ENCOURAGED TO AMBULATE FREELY 0930-PT STATED WILL SIT IN CHAIR FOR COUPLE HOURS TO SLEEP
--- NOTE | 2019-02-17 15:31 | NUR ---
1530-AMBULATING IN HALLWAY-PERCOCET 5 GIVEN FOR 2 PAIN LEVEL
--- NOTE | 2019-02-17 19:00 | NUR ---
REPORT RECEIVED CARE ASSUMED. ASSESSMENT DONE SEE FLOW SHEET. VSS. ICU MONITORS IN PLACE ALARMS SET AND VERIFIED. SLEEPING PLAN VERIFIED BY PATIENT. WILL CONTINUE TO MONITOR.
--- NOTE | 2019-02-17 23:19 | NUR ---
2100 MEDS GIVEN PER MAR. PT POSITIONED FOR COMFORT IN BED. 0 REASSESSMENT DONE SEE FLOW SHEET. VSS. 2300 PT RESTING COMFORTABLY VSS. NO SIGNS OF ACUTE DISTRESS NOTED WILL CONTINUE TO MONITOR.
[2019-02-18] VITALS (11 sets, daily range): BP systolic 113–168; BP diastolic 49–78
--- NOTE | 2019-02-18 03:00 | NUR ---
PT IN BED RESTING. VSS. NO SIGNS OF ACUTE DISTRESS NOTED.
--- NOTE | 2019-02-18 05:00 | NUR ---
CALL LIGHT ANSWERED. PT AMBULATED TO BATHRROM MINIMAL ASSISTANCE GIVEN. VSS WILL CONTINUE TO MONITOR.
[2019-02-18 06:39] LABS: CALC OSMOLALITY 277 mosm/kg (275-300); CARBON DIOXIDE 28.1 mmol/L (21.0-32.0); CHLORIDE - SERUM 103 mmol/L (98-107); CREATININE - SERUM 0.8 mg/dL (0.6-1.3); GLUCOSE 111 mg/dL (74-106); POTASSIUM - SERUM 4.1 mmol/L (3.5-5.1); SODIUM 139 mmol/L (136-145); UREA NITROGEN 11 mg/dL (7-18); eGFR NON AFRICAN AMERICAN > 90 mL/min (90-120)
[2019-02-18 07:26] LABS: HEMATOCRIT 32.7 % (42.0-54.0); HEMOGLOBIN 10.8 g/dL (13.5-17.5); MCH 30.3 pg (26.0-34.0); MCV 91.6 fL (80.0-100.0); MEAN PLATELET VOLUME 10.4 fL (7.4-10.4); RBC 3.57 10x6/uL (4.20-6.10); RDW 13.4 % (11.5-14.5)
--- NOTE | 2019-02-18 12:40 | NUR ---
DR LANDIN IN UNIT AND SPOKE WITH PT AND REGARDING CARE AND COURSE OF TREATMENT
--- NOTE | 2019-02-18 18:25 | NUR ---
AMBULATING EASILY IN ROOM -SR ON PORTABLE TELEMETRY
--- NOTE | 2019-02-18 19:31 | NUR ---
REPORT RECEIVED, SHIFT ASSESSMENT COMPLETED PER FLOW SHEET. SITTING UP IN CHAIR, WATCHING TV. AAOX4. PPP. VSS. DENIES NEEDS. CALL LIGHT AND BELONGINGS WITHIN REACH. SEE FLOW SHEET FOR COMPLETE ASSESSMENT. WILL CONTINUE TO MONITOR.
--- NOTE | 2019-02-18 20:49 | NUR ---
SCHEDULED MEDS GIVEN, WATER PROVIDED, DENIES NEEDS. CALL LIGHT WITHIN REACH. WILL CONTINUE TO MONITOR.
--- NOTE | 2019-02-18 22:00 | NUR ---
ASSISSTED PATIENT TO BED, CALL LIGHT AND BELONGINGS WITHIN REACH.
--- NOTE | 2019-02-18 23:01 | NUR ---
REASSESSMENT COMPLETED PER FLOW SHEET, SEE FOR DETAILS. NO ACUTE DISTRESS NOTED. WARM BLANKET PROVIDED PER PATIENT'S REQUEST. DENIES OTHER NEEDS. CALL LIGHT WITHIN REACH. WILL CONTINUE TO MONITOR.
--- NOTE | 2019-02-19 01:00 | NUR ---
RESTING COMFORTABLY, NO ACUTE DISTRESS NOTED. WILL CONTINUE TO MONITOR.
[2019-02-19 03:00] VITALS: BP 127/56
--- NOTE | 2019-02-19 03:11 | NUR ---
REASSESSMENT COMPLETED PER FLOW SHEET, SEE FOR DETAILS. NO ACUTE DISTRESS NOTED. WILL CONTINUE TO MONITOR.
--- NOTE | 2019-02-19 04:26 | NUR ---
PATIENT OUT OF ROOM FOR AM CHEST XR, ACCOMPANIED BY XR PERSONNEL.
--- NOTE | 2019-02-19 05:30 | NUR ---
RESTING COMFORTABLY, WILL CONTINUE TO MONITOR.
--- NOTE | 2019-02-19 06:00 | NUR ---
SUBSTERNAL DRESSING CHANGED. WATER PROVIDED. DENIES OTHER NEEDS. CALL LIGHT WITHIN REACH.
[2019-02-19 06:47] LABS: CALC OSMOLALITY 275 mosm/kg (275-300); CALCIUM 8.8 mg/dL (8.5-10.1); CHLORIDE - SERUM 102 mmol/L (98-107); CREATININE - SERUM 0.8 mg/dL (0.6-1.3); GLUCOSE 124 mg/dL (74-106); POTASSIUM - SERUM 3.7 mmol/L (3.5-5.1); SODIUM 138 mmol/L (136-145); UREA NITROGEN 10 mg/dL (7-18); eGFR NON AFRICAN AMERICAN > 90 mL/min (90-120)
[2019-02-19 07:08] LABS: HEMATOCRIT 34.6 % (42.0-54.0); HEMOGLOBIN 11.4 g/dL (13.5-17.5); MCHC 32.9 g/dL (31.0-37.0); MCV 91.1 fL (80.0-100.0); MEAN PLATELET VOLUME 10.3 fL (7.4-10.4); RBC 3.8 10x6/uL (4.20-6.10); RDW 13.4 % (11.5-14.5); WBC 8.1 10x3/uL (4.8-10.8)
--- NOTE | 2019-02-19 07:20 | NUR ---
SHIFT REPORT RECEIVED. PT AA&OX4. AMBULATED TO BATHROOM INDEPENDENTLY. MIDLINE DRESSING C/D/I. SUBSTERNAL DRESSING C/D/I. KIRSTY LOWER EXTREMITIES INCITIONS WITH 4X4S IN PLACE. HAS PICC LINE ON JIMMY WITH DRESSING C/D/I. ON ROOM AIR. VSS. NO FEVER. SHIFT ASSESSMENT COMPLETED. WILL CONTINUE TO MONITOR.
[2019-02-19 08:00] VITALS: BP 125/54
--- NOTE | 2019-02-19 09:00 | NUR ---
PT RESTING COMFORTABLY IN CHAIR. ATE 100% OF BREAKFAST. DENIES FURTHER NEEDS AT THIS TIME. WILL CONTINUE TO MONITOR.
[2019-02-19] MEDS ORDERED: PLAVIX75 MG PO (10:24)
[2019-02-19] MEDS ORDERED: AMIODARONE HCL200 MG PO (10:25)
[2019-02-19] MEDS ORDERED: LASIX40 MG PO (10:28)
[2019-02-19] MEDS ORDERED: COLACE100 MG PO (10:29)
[2019-02-19] MEDS ORDERED: K-DUR20 MEQ PO (10:29)
[2019-02-19] MEDS ORDERED: PERCOCET 10-321 EAC1 PO (10:32)
--- NOTE | 2019-02-19 11:00 | NUR ---
SITTING IN CHAIR. WILL BE DISCHARGED HOME TODAY.
--- NOTE | 2019-02-19 12:00 | NUR ---
Nutrition Follow Up: Chart reviewed. Diet: ADA; Glucerna daily PO Intake: 80% meal avg BM: 02/19/19 Wt stable Labs reviewed Meds noted including Lasix, Reglan Rec continue current diet, supplement regimen. RD following.
--- NOTE | 2019-02-19 13:23 | MORECARE ---
CASE MANAGEMENT DISCHARGE SUMMARY PATIENT: ROSIBEL JONES UNIT: [id number] ADM DATE: 02/12/19 AGE: 68 : 50 SEX: M ROOM/BED: D.[facility] AUTHOR: DELMER GALVAN PHYSICIAN: REFERRING PHYSICIAN: MARY ANNE MATUTE MD DATE OF SERVICE: 02/19/19 Discharge Plan Patient Name: ROSIBEL JONES Facility: [facility]:[place] : 1950 Planned Disposition: Anticipated Discharge Date: Discharge Date: Expected LOS: Initial Reviewer: [email or web address] Initial Review Date: 02/12/2019 Generated: 02/19/19 2:23 pm Comments DCP- Discharge Planning Updated by [email or web address]: Zelda Joseph on 02/19/19 12:[address] Patient Name: ROSIBEL JONES Encounter No: [id number] : 1950 Primary Insurance: [employer] CHOICE PPO MCR ADVANT Anticipated DC Date: Planned Disposition: External Planned Provider: : DCP follow-up note: Patient and family in agreement with discharge plan. Patient will discharge to home. Denies any discharge planning needs at this time. CM explained and served DC IMM. Case management will follow and assist as needed. Zelda Joseph DCP- Discharge Planning Updated by [id number]: Melissa Jones on 02/14/19 11:[address] CM had message from Jennifer at [facility] request PT and OT eval. CM will get those records and fax to Jennifer as soon as they are available. CM will continue to follow and assist as needed with discharge planning / needs. DCP- Discharge Planning Updated by [id number]: Melissa Jones on 02/13/19 4:[address] Patient Name: ROSIBEL JONES Admission Status: Elective Accout number: [id number] Admission Date: 02-12-2019 : 1950 Admission Diagnosis: Attending: MARY ANNE MATUTE Current LOS: 1 Anticipated DC Date: Planned Disposition: Primary Insurance: [employer] CHOICE PPO MCR ADVANT Discharge Planning Comments: CM met with patient and spouse at bedside after obtaining verbal consent. Patient states he lives at home with his (Sanam). Patient states that he plans to return to their home. Patient states that his insurance will pay for 3 weeks of cardiac rehab and he would like for CM to check and see if he could do this at the [facility]. CM contacted [facility] [phone] and faxed records as requested [phone]. [facility] stated that they do Cardiac Rehab. Patient denies any medical equipment or Home Health services prior to admission. CM will continue to follow and assist as needed with discharge planning / needs. Circulation Manager: [facility] Initial Assessment Updated by [id number]: Melissa Jones on 02/13/19 4:52 pm * Is the patient Alert and Oriented? Yes * How many steps to enter\exit or inside your home? * PCP [facility] * Pharmacy [facility] * Preadmission Environment Home with Family * ADLs Independent * Equipment None * List name and contact numbers for known caregivers / representatives who currently or will assist patient after discharge: SANAMSteve JONES - SPOUSE - [phone] * Verbal permission to speak to the caregivers and representatives has been obtained from the patient. No * Community resources currently utilized None * Additional services required to return to the preadmission environment? No * Can the patient safely return to the preadmission environment? Yes * Has this patient been hospitalized within the prior 30 days at any hospital? Yes Coverage Notice Reviewer: [id number] Zulema Joseph Notice Issued Date-Time: 02/19/2019 13:14 Notice Type: IM Discharge Notice Notice Delivered To: Patient Relationship to Patient: Self Wireless Operator Name: Delivery Method: HAND - Hand Delivered Fiona Days: Prior Verbal Notification: Recipient Understood Notice: Yes Recipient Signature: Yes Med Rec Note Co-signed by Attending: Coverage Notice Comment: Last DP export: 02/14/19 11:55 a Patient Name: ROSIBEL JONES Page 23491 at 1323 All edits/amendments must be made on the electronic document DICTATION DATE: 02/19/19 1323 SYSTEMS LEAD: JOSE 02/19/19 1323 RPT#: [id number] MT DATE: STATUS: ADM IN [facility] [address] [place] [address] END OF REPORT
--- NOTE | 2019-02-19 14:06 | NUR ---
PICC LINE DC'D BY VENOUS ACCESS NURSE MARY. DISCHARGED PAPERS REVIEWED WITH PATIENT BY DR. LANDIN'S NURSE MILEY. AMBULATED TO PERSONAL VEHICLE. PERSONAL BELONGINGS SENT WITH PATIENT.
--- NOTE | 2019-02-19 15:27 | MORECARE ---
CASE MANAGEMENT DISCHARGE SUMMARY PATIENT: ROSIBEL JONES UNIT: [id number] ADM DATE: 02/12/19 AGE: 68 : 50 SEX: M ROOM/BED: D.02 AUTHOR: DELMER GALVAN PHYSICIAN: REFERRING PHYSICIAN: MARY ANNE MATUTE MD DATE OF SERVICE: 02/19/19 Discharge Plan Patient Name: ROSIBEL JONES Facility: [facility]:[place] : 1950 Planned Disposition: Anticipated Discharge Date: Discharge Date: 02/19/2019 Expected LOS: Initial Reviewer: [email or web address] Initial Review Date: 02/12/2019 Generated: 02/19/19 4:27 pm Comments DCP- Discharge Planning Updated by [id number]: Zelda Joseph on 02/19/19 12:[address] Patient Name: ROSIBEL JONES Encounter No: [id number] : 1950 Primary Insurance: [employer] CHOICE PPO MCR ADVANT Anticipated DC Date: Planned Disposition: External Planned Provider: : DCP follow-up note: Patient and family in agreement with discharge plan. Patient will discharge to home. Denies any discharge planning needs at this time. CM explained and served DC IMM. Case management will follow and assist as needed. Zelda Joseph DCP- Discharge Planning Updated by [email or web address]: Melissa Jones on 02/14/19 11:[address] CM had message from Jennifer at [facility] request PT and OT eval. CM will get those records and fax to Jennifer as soon as they are available. CM will continue to follow and assist as needed with discharge planning / needs. DCP- Discharge Planning Updated by [id number]: Melissa Jones on 02/13/19 4:[address] Patient Name: ROSIBEL JONES Admission Status: Elective Accout number: [id number] Admission Date: 02-12-2019 : 1950 Admission Diagnosis: Attending: MARY ANNE MATUTE Current LOS: 1 Anticipated DC Date: Planned Disposition: Primary Insurance: [employer] CHOICE PPO MCR ADVANT Discharge Planning Comments: CM met with patient and spouse at bedside after obtaining verbal consent. Patient states he lives at home with his (Sanam). Patient states that he plans to return to their home. Patient states that his insurance will pay for 3 weeks of cardiac rehab and he would like for CM to check and see if he could do this at the [facility]. CM contacted [facility] [phone] and faxed records as requested [phone]. [facility] stated that they do Cardiac Rehab. Patient denies any medical equipment or Home Health services prior to admission. CM will continue to follow and assist as needed with discharge planning / needs. Carpenter Wooden Tank Erecting: Melissa Jones [facility] - Discharge Planning Initial Assessment Updated by [id number]: Melissa Jones on 02/13/19 4:52 pm * Is the patient Alert and Oriented? Yes * How many steps to enter\exit or inside your home? * PCP [facility] * Pharmacy [facility] * Preadmission Environment Home with Family * ADLs Independent * Equipment None * List name and contact numbers for known caregivers / representatives who currently or will assist patient after discharge: SANAMREENA JONES - SPOUSE - [phone] * Verbal permission to speak to the caregivers and representatives has been obtained from the patient. No * Community resources currently utilized None * Additional services required to return to the preadmission environment? No * Can the patient safely return to the preadmission environment? Yes * Has this patient been hospitalized within the prior 30 days at any hospital? Yes Coverage Notice Reviewer: [id number] Zulema Joseph Notice Issued Date-Time: 02/19/2019 13:14 Notice Type: IM Discharge Notice Notice Delivered To: Patient Relationship to Patient: Self Haulpak Driver Name: Delivery Method: HAND - Hand Delivered Fiona Days: Prior Verbal Notification: Recipient Understood Notice: Yes Recipient Signature: Yes Med Rec Note Co-signed by Attending: Coverage Notice Comment: Last DP export: 02/19/19 12:23 pm Patient Name: ROSIBEL JONES Page [id number] at 1527 All edits/amendments must be made on the electronic document DICTATION DATE: 02/19/19 1526 ASBESTOS MICROSCOPIST: JOSE 02/19/19 1526 RPT#: [id number] DC DATE:02/19/19 STATUS: DIS IN [facility] [address] [place] [address] END OF REPORT
== END 2019-02-19 14:08 | disposition home or self-care (01) | DRG 236 ==
LOC: D.SDCHOLD 02-12 05:00 → D.CVICU 02-12 05:00 → D.SDCHOLD 02-12 07:30 → D.CVICU 02-12 12:18 → D.SDCHOLD 02-15 15:58 → D.CVICU 02-15 15:59
PROVIDERS: Internal Medicine Cardiovascular Disease; ADMIT Thoracic Surgery (Cardiothoracic Vascular Surgery); ATTEND Thoracic Surgery (Cardiothoracic Vascular Surgery)
PROC: 021109W Bypass Coronary Artery, Two Arteries from Aorta with Autologous Venous Tissue, Open Approach (ICD-10-PCS; 2019-02-12)
PROC: 06BP4ZZ Excision of Right Saphenous Vein, Percutaneous Endoscopic Approach (ICD-10-PCS; 2019-02-12)
PROC: 5A1221Z Performance of Cardiac Output, Continuous (ICD-10-PCS; 2019-02-12)
PROC: B24BZZ4 Ultrasonography of Heart with Aorta, Transesophageal (ICD-10-PCS; 2019-02-12)
PROC: 02100Z9 Bypass Coronary Artery, One Artery from Left Internal Mammary, Open Approach (ICD-10-PCS; principal; 2019-02-12 07:30)
PROC: 05HY33Z Insertion of Infusion Device into Upper Vein, Percutaneous Approach (ICD-10-PCS; 2019-02-13)
DX: I25.110 Atherosclerotic heart disease of native coronary artery with unstable angina pectoris (principal); J98.11 Atelectasis; E11.9 Type 2 diabetes mellitus without complications; I10 Essential (primary) hypertension; I65.29 Occlusion and stenosis of unspecified carotid artery; E78.5 Hyperlipidemia, unspecified; I48.0 Paroxysmal atrial fibrillation

== ENCOUNTER 2019-03-11 20:17 | Inpatient (IN) | payer MEDICARE ==
[~2019-03-11] VITALS: Ht 175.3 cm; Wt 89.5 kg
[~2019-03-11 20:17] MED LIST changes: +AMIODARONE HCL200 MG PO; +COLACE100 MG PO; +K-DUR20 MEQ PO; +LASIX40 MG PO; +PERCOCET 10-321 EAC1 PO; +PLAVIX75 MG PO
[2019-03-11 21:21] VITALS: BP 138/62
[2019-03-11 21:40] LABS: PRO BNP 395 pg/mL (0-125)
[2019-03-11 21:45] LABS: TROPONIN-I < 0.017 ng/mL (0.000-0.060)
--- NOTE | 2019-03-11 23:14 | NUR ---
REC'D PATIENT FROM ER. PATIENT HAS NO S/S OF DISTRESS. COMPLETED PATIENT ADMISSION. PATIENT DENIES NEEDS AT THIS TIME. BED IN LOWEST POSITION AND CALL LIGHT WITHIN REACH. ENCOURAGED THE PATIENT TO CALL IF HE HAS NEEDS. WILL CONTINUE TO MONITOR.
[2019-03-11 23:28] VITALS: BP 140/54; Ht 175.3 cm; Wt 89.5 kg
[2019-03-12 04:59] VITALS: BP 120/80
[2019-03-12 06:19] LABS: BASOPHILS 0.3 % (0-2); EOSINOPHILS 4.4 % (0-7); HEMATOCRIT 38.8 % (42.0-54.0); HEMOGLOBIN 13.4 g/dL (13.5-17.5); IMMATURE GRANULOCYTES 0.1 % (0-5); LYMPHOCYTES 16.7 % (15-50); MCH 29.7 pg (26.0-34.0); MCHC 34.5 g/dL (31.0-37.0); MONOCYTES 10.8 % (2-11); NEUTROPHILS 67.7 % (40-80); PLATELET COUNT 247 10x3/uL (130-400); RBC 4.51 10x6/uL (4.20-6.10); RDW 12.8 % (11.5-14.5); WBC 6.9 10x3/uL (4.8-10.8)
[2019-03-12 06:20] LABS: ALBUMIN 3.5 g/dL (3.4-5.0); ALKALINE PHOSPHATASE 92 U/L (46-116); ALT (SGPT) 50 U/L (10-68); BILIRUBIN - TOTAL 0.67 mg/dL (0.2-1.3); CALC OSMOLALITY 272 mosm/kg (275-300); CALCIUM 8.9 mg/dL (8.5-10.1); CARBON DIOXIDE 29.1 mmol/L (21.0-32.0); CHLORIDE - SERUM 101 mmol/L (98-107); CREATININE - SERUM 0.8 mg/dL (0.6-1.3); GLUCOSE 82 mg/dL (74-106); MAGNESIUM - SERUM 2.1 mg/dL (1.8-2.4); POTASSIUM - SERUM 3.6 mmol/L (3.5-5.1); PRO BNP 404 pg/mL (0-125); SODIUM 137 mmol/L (136-145); TROPONIN-I < 0.017 ng/mL (0.000-0.060); UREA NITROGEN 12 mg/dL (7-18); eGFR NON AFRICAN AMERICAN > 90 mL/min (90-120)
--- NOTE | 2019-03-12 07:24 | NUR ---
PT RESTING IN BED, EYES OPEN. ALERT AND ORIENTED. UP AD WILLARD. PT ON 2L O2, NC. IV TO RIGHT FOREARM, SL. SITE PATENT WITHOUT REDNESS OR SWELLING. PT ON TELEMETRY, 59 SB. PT DENIES ANYTHING FURTHER AT THIS TIME. CALL LIGHT IN REACH. WILL CONTINUE TO MONITOR.
[2019-03-12 09:13] VITALS: BP 137/77
--- NOTE | 2019-03-12 09:23 | NUR ---
I have reviewed this patient and I concur with the Shift Assessment completed by the Licensed Practical Nurse today this shift.
[2019-03-12 13:56] VITALS: BP 157/48
[2019-03-12 17:04] VITALS: BP 150/65
--- NOTE | 2019-03-12 19:00 | NUR ---
PT RESTING IN BED, SPOUSE AT BEDSIDE. NO C/O PAIN. NO S/S OF ACUTE DISTRESS NOTED. PT DENIES ANYTHING FURTHER.
--- NOTE | 2019-03-12 19:53 | NUR ---
REC'D IN BED AWAKE AND ALERT. PT AND ARE VERY UPSET AT THIS TIME MOMENT STATING THAT THEY HAVEN'T SEEN A DOCTOR IN OVER 18 HOURS. THIS NURSE TRIED TO INFORM PT THAT MD SEES PT BY PRIORITY AND THAT HE IS AWARE THAT THEY WANT TO SPEAK WITH HIM. NO C/O NOTED OR VOICED ASSESSMENT COMPLETED. C/L IN REACH AT BEDSIDE.
[2019-03-12 20:00] VITALS: BP 129/85
[2019-03-13] VITALS (11 sets, daily range): BP systolic 108–150; BP diastolic 43–98
--- NOTE | 2019-03-13 04:12 | NUR ---
I have reviewed this patient and I concur with the Shift Assessment completed by the Licensed Practical Nurse today this shift.
[2019-03-13 07:03] LABS: BASOPHILS 0.3 % (0-2); EOSINOPHILS 4.3 % (0-7); HEMATOCRIT 39.5 % (42.0-54.0); HEMOGLOBIN 13.4 g/dL (13.5-17.5); IMMATURE GRANULOCYTES 0.2 % (0-5); LYMPHOCYTES 17.1 % (15-50); MCH 29.5 pg (26.0-34.0); MCHC 33.9 g/dL (31.0-37.0); MEAN PLATELET VOLUME 9.9 fL (7.4-10.4); MONOCYTES 14.8 % (2-11); NEUTROPHILS 63.3 % (40-80); PLATELET COUNT 223 10x3/uL (130-400); RBC 4.54 10x6/uL (4.20-6.10)
[2019-03-13 08:13] LABS: CALC OSMOLALITY 270 mosm/kg (275-300); CALCIUM 8.8 mg/dL (8.5-10.1); CARBON DIOXIDE 28.9 mmol/L (21.0-32.0); CHLORIDE - SERUM 100 mmol/L (98-107); CREATININE - SERUM 0.8 mg/dL (0.6-1.3); GLUCOSE 95 mg/dL (74-106); POTASSIUM - SERUM 3.3 mmol/L (3.5-5.1); SODIUM 136 mmol/L (136-145); UREA NITROGEN 10 mg/dL (7-18); eGFR NON AFRICAN AMERICAN > 90 mL/min (90-120)
[2019-03-13 14:08] LABS: APPEARANCE CLEAR (CLEAR); BILIRUBIN NEGATIVE (NEGATIVE); COLOR YELLOW (YELLOW); GLUCOSE 500 mg/dL (NEGATIVE); KETONE NEGATIVE (NEGATIVE); NITRITE NEGATIVE (NEGATIVE); PROTEIN NEGATIVE (NEGATIVE); SPECIFIC GRAVITY 1.015 (1.005-1.020); UROBILINOGEN NORMAL (NORMAL)
[2019-03-13 16:09] LABS: PROTEIN - BODY FLUID 4.2 G/DL
[2019-03-13 16:10] LABS: EOS BF 3 %; MACROPHAGES BF 16 %; MESOTHELIALS BF 19 %; NEUT - BF 9 %
[2019-03-14 04:00] VITALS: BP 133/69
[2019-03-14 07:46] LABS: BASOPHILS 0.3 % (0-2); CALC OSMOLALITY 273 mosm/kg (275-300); CARBON DIOXIDE 27.3 mmol/L (21.0-32.0); CHLORIDE - SERUM 101 mmol/L (98-107); CREATININE - SERUM 0.8 mg/dL (0.6-1.3); EOSINOPHILS 4.5 % (0-7); GLUCOSE 147 mg/dL (74-106); HEMATOCRIT 40.4 % (42.0-54.0); HEMOGLOBIN 13.8 g/dL (13.5-17.5); LYMPHOCYTES 15.5 % (15-50); MCH 29.9 pg (26.0-34.0); MCHC 34.2 g/dL (31.0-37.0); MCV 87.4 fL (80.0-100.0); MONOCYTES 15.4 % (2-11); NEUTROPHILS 64.3 % (40-80); PLATELET COUNT 224 10x3/uL (130-400); POTASSIUM - SERUM 3.7 mmol/L (3.5-5.1); RBC 4.62 10x6/uL (4.20-6.10); RDW 13.1 % (11.5-14.5); SODIUM 136 mmol/L (136-145); UREA NITROGEN 10 mg/dL (7-18); WBC 6.4 10x3/uL (4.8-10.8); eGFR NON AFRICAN AMERICAN > 90 mL/min (90-120)
--- NOTE | 2019-03-14 07:59 | NUR ---
REC'D. AT CHGE OF SHIFT.COMING OUT OF BATHROOM.DENIES ANY DISCOMFORT AT PRESENT TIME.STATES NOT GOING TO LISTEN TO THIS DAMN BEEPING ALL NITE UNHOOKED SELF FROM IV. WILL CONTINUE TO MONITOR FOR ANY CHGES.AND CONTINUE CURRENT PLAN OF CARE.
[2019-03-14 09:14] VITALS: BP 136/65
--- NOTE | 2019-03-14 09:58 | OP ---
PATIENT NAME: ROSIBEL JONES MEDICAL RECORD: [id number] :50 LOCATION:[email or web address] ADMISSION DATE:03/11/19 SURGEON: MARY ANNE VASQUEZ MD DATE OF OPERATION: 03/13/2019 SURGEON: Mary Anne Vasquez. PROCEDURE PERFORMED: Left ultrasound-guided thoracentesis. SPECIMENS: 800 cc of serosanguineous fluid. COMPLICATIONS: None. CONDITION: Stable. PROCEDURE NOTE: With the patient seated upright and with the pulse oximetry and telemetry monitored, ultrasound was used to localize the left pleural effusion and a space for aspiration. The posterior chest was sterilely prepped and draped. A 1% Xylocaine was used for local anesthetic and the effusion was localized and found with a small needle. A 2-mm skin incision was made and the thoracentesis catheter was inserted without difficulty and a total of 800 cc of fluid was removed. Some was sent for chemistry, cell count and culture. The catheter was removed and there was no residual by ultrasound. No apparent complications. Chest x-ray pending. TRANSINT:[id number] Voice Confirmation ID: [id number] DOCUMENT ID: [id number] MARY ANNE VASQUEZ MD at 0958 CC: [id number] DICTATION DATE: 03/13/19 1249 VARIETY SAW OPERATOR: 03/13/19 1311 [place] [address]
--- NOTE | 2019-03-14 13:43 | MORECARE ---
CASE MANAGEMENT DISCHARGE SUMMARY PATIENT: ROSIBEL JONES UNIT: [id number] ADM DATE: 03/11/19 AGE: 68 : 50 SEX: M ROOM/BED: D.2238 AUTHOR: DELMER GALVAN PHYSICIAN: REFERRING PHYSICIAN: WILBERT STONER MD DATE OF SERVICE: 03/14/19 Discharge Plan Patient Name: ROSIBEL [facility]ON[facility] [facility] 1950 Planned Disposition: Home Anticipated Discharge Date: Discharge Date: Expected LOS: Initial Reviewer: [email or web address] Initial Review Date: 03/14/2019 Generated: 03/14/19 2:43 pm DCPIA - Discharge Planning Initial Assessment Updated by [email or web address]: Maureen Hopkins on 03/14/19 1:42 pm * Is the patient Alert and Oriented? Yes * PCP LEI HAMPTON * Preadmission Environment Home with Family * ADLs Independent * Equipment None * List name and contact numbers for known caregivers / representatives who currently or will assist patient after discharge: ANGELY RICHARDS, * Community resources currently utilized None * Additional services required to return to the preadmission environment? No * Can the patient safely return to the preadmission environment? Yes * Has this patient been hospitalized within the prior 30 days at any hospital? Yes Coverage Notice Reviewer: [id number] - Maureen Hopkins Notice Issued Date-Time: 03/14/2019 13:38 Notice Type: IM Discharge Notice Notice Delivered To: Patient Relationship to Patient: Self Mds Rn Name: Delivery Method: HAND - Hand Delivered Fiona Days: Prior Verbal Notification: Recipient Understood Notice: Yes Recipient Signature: Yes Med Rec Note Co-signed by Attending: Coverage Notice Comment: Patient Name: ROSIBEL JONES Page [id number] at 1343 All edits/amendments must be made on the electronic document DICTATION DATE: 03/14/19 134 FURNACE UNLOADER: JOSE 03/14/19 134 RPT#: [id number] DC DATE: STATUS: ADM IN [facility] [address] [place] [address] END OF REPORT
--- NOTE | 2019-03-14 13:51 | MORECARE ---
CASE MANAGEMENT DISCHARGE SUMMARY PATIENT: ROSIBEL JONES UNIT: [id number] ADM DATE: 03/11/19 AGE: 68 : 50 SEX: M ROOM/BED: D.2238 AUTHOR: [place] PHYSICIAN: REFERRING PHYSICIAN: WILBERT STONER MD DATE OF SERVICE: 03/14/19 Discharge Plan Patient Name: ROSIBEL JONES Facility: [facility]:[place] : 1950 Planned Disposition: Home Anticipated Discharge Date: Discharge Date: Expected LOS: Initial Reviewer: [email or web address] Initial Review Date: 03/14/2019 Generated: 03/14/19 2:51 pm Comments DCP- Discharge Planning Updated by [id number]: Maureen Hopkins on 03/14/19 12:[address] Patient Name: ROSIBEL JONES Admission Status: ER Accout number: [id number] Admission Date: 03-11-2019 : 1950 Admission Diagnosis:ACUTE RESPIRATORY FAILURE WITH HYPOXIA Attending: WILBERT STONER Current LOS: 3 Anticipated DC Date: Planned Disposition: Home Primary Insurance: [employer] PPO MCR ADVANT Discharge Planning Comments: CM NET WITH PATIENT ABOUT DC PLANNING/NEEDS. PATIENT STATES PLANS TO DC TO HOME TODAY. STATES HAS NO NEEDS. 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 IMM SERVED. CM WILL CONTACT MD AND LET THEM KNOW PATIENT WANTS TO DC TODAY IF POSSIBLE. CM WILL FOLLOW AND ASSIST NEEDED WITH DC PLANNING/NEEDS. Crm Functional Analyst: Maureen Hopkins DCPIA - Discharge Planning Initial Assessment Updated by [id number]: Maureen Hopkins on 03/14/19 1:42 pm * Is the patient Alert and Oriented? Yes * PCP LEI HAMPTON * Preadmission Environment Home with Family * ADLs Independent * Equipment None * List name and contact numbers for known caregivers / representatives who currently or will assist patient after discharge: MAURICE, , * Community resources currently utilized None * Additional services required to return to the preadmission environment? No * Can the patient safely return to the preadmission environment? Yes * Has this patient been hospitalized within the prior 30 days at any hospital? Yes Coverage Notice Reviewer: [id number] - Maureen Hopkins Notice Issued Date-Time: 03/14/2019 13:38 Notice Type: IM Discharge Notice Notice Delivered To: Patient Relationship to Patient: Self Cnc Operator Programmer Name: Delivery Method: HAND - Hand Delivered Fiona Days: Prior Verbal Notification: Recipient Understood Notice: Yes Recipient Signature: Yes Med Rec Note Co-signed by Attending: Coverage Notice Comment: Last DP export: 03/14/19 12:43 p Patient Name: ROSIBEL JONES Page [phone] at 1351 All edits/amendments must be made on the electronic document DICTATION DATE: 03/14/19 1351 SECURITY PROFESSIONAL: JOSE 03/14/19 1351 RPT#: [id number] DC DATE: STATUS: ADM IN [facility] [address] [place] [address] END OF REPORT
--- NOTE | 2019-03-14 15:21 | NUR ---
DISCHARGE INSTRUCTIONS GIVEN. SEEMS TO UNDERSTAND INSTRUCTIONS. IV OUT TIP INTACT. MONITOR OFF. LEFT WITH HOSPITAL STAFF TO GO HOME TO PERSONAL RIDE.
== END 2019-03-14 15:22 | disposition home or self-care (01) | DRG 314 ==
LOC: D.ER 20:17 → D.MS 20:38 → D.SDCHOLD 03-13 15:53 → D.MS 03-13 15:59
PROVIDERS: Family Medicine; Internal Medicine Nephrology; Thoracic Surgery (Cardiothoracic Vascular Surgery); ADMIT Family Medicine; ATTEND Family Medicine
PROC: 0W9B3ZZ Drainage of Left Pleural Cavity, Percutaneous Approach (ICD-10-PCS; principal; 2019-03-13)
DX: I97.0 Postcardiotomy syndrome (principal); J18.9 Pneumonia, unspecified organism; J96.01 Acute respiratory failure with hypoxia; J90 Pleural effusion, not elsewhere classified; Z87.891 Personal history of nicotine dependence; E11.9 Type 2 diabetes mellitus without complications; I10 Essential (primary) hypertension; I25.10 Atherosclerotic heart disease of native coronary artery without angina pectoris; Z95.5 Presence of coronary angioplasty implant and graft; Z95.1 Presence of aortocoronary bypass graft

== ENCOUNTER → 2019-03-20 14:02 | Outpatient (CLI) | payer MEDICARE ==
[2019-03-20 15:10] LABS: HEMATOCRIT 40.8 % (42.0-54.0); HEMOGLOBIN 14.2 g/dL (13.5-17.5); MCHC 34.8 g/dL (31.0-37.0); MCV 86.1 fL (80.0-100.0); MEAN PLATELET VOLUME 10.2 fL (7.4-10.4); RBC 4.74 10x6/uL (4.20-6.10); RDW 12.9 % (11.5-14.5); WBC 7.1 10x3/uL (4.8-10.8)
[2019-03-20 15:15] LABS: ALBUMIN 3.8 g/dL (3.4-5.0); ALKALINE PHOSPHATASE 84 U/L (46-116); ALT (SGPT) 61 U/L (10-68); BILIRUBIN - TOTAL 0.57 mg/dL (0.2-1.3); CALC OSMOLALITY 278 mosm/kg (275-300); CALCIUM 9.3 mg/dL (8.5-10.1); CARBON DIOXIDE 26.1 mmol/L (21.0-32.0); CHLORIDE - SERUM 98 mmol/L (98-107); CREATININE - SERUM 0.9 mg/dL (0.6-1.3); GLUCOSE 161 mg/dL (74-106); POTASSIUM - SERUM 3.6 mmol/L (3.5-5.1); PROTEIN - SERUM 7.1 g/dL (6.4-8.2); SODIUM 137 mmol/L (136-145); UREA NITROGEN 19 mg/dL (7-18); eGFR NON AFRICAN AMERICAN 89 mL/min (90-120)
== END | disposition home or self-care (01) ==
LOC: D.LAB 14:02
PROVIDERS: Thoracic Surgery (Cardiothoracic Vascular Surgery)
DX: J90 Pleural effusion, not elsewhere classified (principal); D64.9 Anemia, unspecified

== ENCOUNTER → 2020-03-19 09:28 | Outpatient (CLI) | payer MEDICARE ==
[2019-03-11 23:28] VITALS: BMI 29.1
== END | disposition home or self-care (01) ==
LOC: D.US 09:28
PROVIDERS: ATTEND Thoracic Surgery (Cardiothoracic Vascular Surgery)
DX: I65.22 Occlusion and stenosis of left carotid artery (principal); I25.10 Atherosclerotic heart disease of native coronary artery without angina pectoris

== ENCOUNTER → 2021-03-23 12:36 | Outpatient (CLI) | payer MEDICARE ==
[2019-03-11 23:28] VITALS: BMI 29.1
== END | disposition home or self-care (01) ==
LOC: D.HCCECHO 12:36
PROVIDERS: ATTEND Internal Medicine Cardiovascular Disease
DX: I25.10 Atherosclerotic heart disease of native coronary artery without angina pectoris (principal)

== ENCOUNTER → 2021-03-30 13:56 | Outpatient (CLI) | payer MEDICARE ==
[2019-03-11 23:28] VITALS: BMI 29.1
== END | disposition home or self-care (01) ==
LOC: D.US 13:56
PROVIDERS: ATTEND Thoracic Surgery (Cardiothoracic Vascular Surgery)
DX: I70.202 Unspecified atherosclerosis of native arteries of extremities, left leg (principal); I70.291 Other atherosclerosis of native arteries of extremities, right leg; I65.21 Occlusion and stenosis of right carotid artery